=== PATIENT | female | born 1960 | race Hispanic/Latino ===

== ENCOUNTER → 2017-11-08 | Outpatient (CLI) | payer OTHER ==
[~2017-11-08] MED LIST: ALBU8.5H8 IH; AMOX-429 PO; ASPI-1114 PO; CALC1TAB3 PO; CETI10TA86 PO; DOXY100T2 PO; FENO145T37 PO; FLUT110HFA IH; FURO40TA5 PO; INSLAN SQ; INSU100C6 SQ; LISI2.5T2 PO; METO-409 PO; NITR0.4T SL; POTA20TA82 PO; PRAV10TA39 PO; PREG100C PO; RANO500T2 PO; TIOT4MIS3 IH; TOPI25CA2 PO; omeprazole PO
== END | disposition home or self-care (01) ==
LOC: SHCH 08:13
PROVIDERS: ATTEND Internal Medicine Cardiovascular Disease
DX: I34.0 Nonrheumatic mitral (valve) insufficiency (principal); I51.7 Cardiomegaly; I25.10 Atherosclerotic heart disease of native coronary artery without angina pectoris
CPT/HCPCS: 93306

== ENCOUNTER → 2017-11-19 | Outpatient (CLI) | payer OTHER | LOC: SHCH 10:29 | PROVIDERS: ATTEND Internal Medicine Cardiovascular Disease | DX: I73.9 Peripheral vascular disease, unspecified (principal) | CPT/HCPCS: 93925 ==

== ENCOUNTER 2018-07-21 19:42 | Emergency (ER) | payer OTHER ==
[2018-07-21] MEDS ORDERED: ACETAMINOPHEN-CODEINE 300/30MG TAB ONE (20:20)
== END 2018-07-21 22:42 | disposition home or self-care (01) ==
LOC: EDH 19:42
DX: S92.354A Nondisplaced fracture of fifth metatarsal bone, right foot, initial encounter for closed fracture (principal); S92.344A Nondisplaced fracture of fourth metatarsal bone, right foot, initial encounter for closed fracture; J44.9 Chronic obstructive pulmonary disease, unspecified; E11.9 Type 2 diabetes mellitus without complications; E78.5 Hyperlipidemia, unspecified; I10 Essential (primary) hypertension; Z90.710 Acquired absence of both cervix and uterus; Z87.891 Personal history of nicotine dependence; Z98.890 Other specified postprocedural states; W18.39XA Other fall on same level, initial encounter; Y93.89 Activity, other specified; Y92.89 Other specified places as the place of occurrence of the external cause; Y99.8 Other external cause status
CPT/HCPCS: 29515; 73590; 73610; 73630

== ENCOUNTER 2018-07-24 14:50 | Observation (INO) | payer OTHER ==
[~2018-07-24] VITALS: Ht 162.6 cm; Wt 97.7 kg
[2018-07-24 15:29] LABS: CREATININE 2.1 mg/dL (0.5-1.5)
[2018-07-24 15:34] LABS: ALBUMIN 2.5 g/dL (3.5-5.0); BILIRUBIN,TOTAL 0.4 mg/dL (0.2-1.0); TOTAL PROTEIN, SERUM 6.3 g/dL (6.0-8.3)
[2018-07-24] MEDS ORDERED: SODIUM CHLORIDE 0.9% 500ML 500 ML IV ONE (15:46)
[2018-07-24] MEDS ORDERED: ONDANSETRON HCL 4 MG/2 ML VIAL ONE (15:46)
[2018-07-24 15:50] LABS: CREATINE KINASE, TOTAL 116 U/L (21-232); MYOGLOBIN 140 ng/mL (10-92); TROPONIN I < 0.04 ng/mL (0.00-0.06)
[2018-07-24 16:52] LABS: BASOPHILS % (AUTO) 0.4 % (0.0-5.0); EOSINOPHILS % (AUTO) 2.1 % (0.0-8.0); HEMATOCRIT 29.8 % (36-48); LYMPHOCYTES % (AUTO) 14.3 % (21.0-51.0); MEAN CORPUSCULAR HEMOGLOBIN 28.8 pg (27.0-33.0); MEAN CORPUSCULAR HGB CONC 32.5 g/dL (32.0-36.0); MEAN CORPUSCULAR VOLUME 88.7 fL (79-99); MONOCYTES % (AUTO) 6.2 % (3.0-13.0); PLATELET COUNT (AUTO) 280 K/uL (130-400); RED BLOOD CELL COUNT(AUTO) 3.36 MIL/uL (4.00-5.50); RED CELL DISTRIBUTION WIDTH 14.5 % (11.0-15.5)
[2018-07-24 16:53] LABS: APPEARANCE,URINE Clear (CLEAR); BILIRUBIN,URINE Negative (NEGATIVE); COLOR,URINE Yellow (YELLOW); GLUCOSE, URINE (UA) Negative (NEGATIVE); KETONES,URINE Negative (NEGATIVE); LEUKOCYTE ESTERASE ,URINE Negative (NEGATIVE); NITRATE,URINE Negative (NEGATIVE); OCCULT BLOOD,URINE Negative (NEGATIVE); PROTEIN,URINE Negative (NEGATIVE); UROBILINOGEN,URINE 0.2 mg/dL (0.2-1.0)
[2018-07-24] MEDS ORDERED: SODIUM CHLORIDE 0.9% 1000ML 1,000 ML IV ONE (16:53)
[2018-07-24 17:03] LABS: AMPHET/METH SCREEN,URINE NEGATIVE (NEGATIVE); BARBITURATE SCREEN, URINE NEGATIVE (NEGATIVE); BENZODIAZEPINES SCREEN,URINE NEGATIVE (NEGATIVE); CANNABINOID SCREEN,URINE NEGATIVE (NEGATIVE); COCAINE SCREEN,URINE NEGATIVE (NEGATIVE); OPIATE SCREEN,URINE POSITIVE (NEGATIVE); PHENCYCLIDINE SCREEN,URINE NEGATIVE (NEGATIVE)
[2018-07-24] MEDS ORDERED: GLUCAGON 1MG KIT 1 MG ML IM PRN ×2 (18:15→23:15)
[2018-07-24] MEDS ORDERED: DEXTROSE 50%-WATER 50 ML DISP.SYRIN IV PRN ×2 (18:15→23:15)
[2018-07-24] MEDS ORDERED: 1/2 NORMAL SALINE 1,000 ML IV SCH (18:15)
[2018-07-24] MEDS ORDERED: NITROGLYCERIN 0.4 MG SL TAB SL PRN (19:15)
[2018-07-24] MEDS ORDERED: INSULIN R PO SS1 SQ SCH (21:00)
[2018-07-24] MEDS: RANOLAZINE 500 MG TAB.SR.12H PO SCH (21:00)
[2018-07-24] MEDS ORDERED: FENOFIBRATE NANOCRYSTALLIZED 145 MG TAB PO SCH (21:00)
[2018-07-24] MEDS ORDERED: POTASSIUM CHLORIDE 20 MEQ ERTAB PO SCH (21:00)
[2018-07-24] MEDS ORDERED: POTASSIUM CHLORIDE 20 MEQ ERTAB PO ONE (21:59)
[2018-07-24] MEDS ORDERED: 1/2 NORMAL SALINE 1,000 ML IV ONE (22:04)
[2018-07-24 22:35] VITALS: BP 114/62
[2018-07-24] MEDS ORDERED: SODIUM CHLORIDE 0.9% 1000ML 1,000 ML IV SCH (23:09)
[2018-07-24] MEDS ORDERED: LIDOCAINE HCL-MPF 1% 2ML VIAL IVP PRN (23:15)
[2018-07-24] MEDS ORDERED: LACTULOSE 20 GM/30 ML UDCUP PO PRN (23:15)
[2018-07-24] MEDS ORDERED: POTASSIUM CHLORIDE 20 MEQ ERTAB PO PRN (23:15)
[2018-07-24] MEDS ORDERED: ACETAMINOPHEN 325 MG TAB PO PRN ×2 (23:15)
[2018-07-24] MEDS ORDERED: POTASSIUM CHLORIDE 20MEQ/100ML 100 ML IV PRN (23:15)
[2018-07-24] MEDS ORDERED: ONDANSETRON HCL 4 MG/2 ML VIAL IV PRN (23:15)
[2018-07-24] MEDS ORDERED: POTASSIUM CHLORIDE 10% ELIXIR 20 MEQ/15 ML UDCUP PO PRN (23:15)
[2018-07-24] MEDS ORDERED: MAG HYDROX/AL HYDROX/SIMETH ES 30 ML SUSP UDCUP PO PRN (23:15)
[2018-07-25] MEDS ORDERED: VENTOLIN HFA IH SCH
[2018-07-25 03:36] VITALS: BP 111/49
[2018-07-25 08:00] VITALS: BP 112/56
[2018-07-25] MEDS ORDERED: FUROSEMIDE 40 MG TABLET PO SCH (09:00)
[2018-07-25] MEDS ORDERED: ENOXAPARIN SODIUM 40 MG/0.4 ML SYRINGE SQ SCH (09:00)
[2018-07-25] MEDS ORDERED: PANTOPRAZOLE SODIUM 40 MG TABLET.DR PO SCH (09:00)
[2018-07-25] MEDS ORDERED: ASPIRIN 81MG TAB.CHEW PO SCH (09:00)
[2018-07-25] MEDS ORDERED: OLODATEROL HCL IH SCH (09:00)
[2018-07-25] MEDS ORDERED: TIOTROPIUM BR IH SCH (09:00)
[2018-07-25] MEDS: RANOLAZINE 500 MG TAB.SR.12H PO SCH (09:04)
[2018-07-25 09:07] LABS: POTASSIUM 4.4 mmol/L (3.5-5.1)
[2018-07-25 12:00] VITALS: BP 126/68
[2018-07-25] MEDS ORDERED: FAMO40TA7 PO (12:39)
[2018-07-25] MEDS ORDERED: ROSU20TA30 PO (12:39)
[2018-07-25] MEDS ORDERED: TYL3 PO (12:39)
[2018-07-25] MEDS ORDERED: INSLAN SQ (12:39)
[2018-07-25] MEDS ORDERED: INSU100C14 SQ (12:39)
[2018-07-25] MEDS ORDERED: Pravastatin Sodium 10 MG PO SCH (21:00)
== END 2018-07-25 14:34 | disposition home or self-care (01) ==
LOC: EDH 14:50 → EDHIP 17:47 → 3CH 20:24
PROVIDERS: ADMIT Internal Medicine; ATTEND Internal Medicine
DX: E86.0 Dehydration (principal); R55 Syncope and collapse; K31.84 Gastroparesis; I13.0 Hypertensive heart and chronic kidney disease with heart failure and stage 1 through stage 4 chronic kidney disease, or unspecified chronic kidney disease; E11.65 Type 2 diabetes mellitus with hyperglycemia; E11.40 Type 2 diabetes mellitus with diabetic neuropathy, unspecified; E11.51 Type 2 diabetes mellitus with diabetic peripheral angiopathy without gangrene; E11.3499 Type 2 diabetes mellitus with severe nonproliferative diabetic retinopathy without macular edema, unspecified eye; E11.22 Type 2 diabetes mellitus with diabetic chronic kidney disease; E11.628 Type 2 diabetes mellitus with other skin complications; N18.3 Chronic kidney disease, stage 3 (moderate); I50.9 Heart failure, unspecified; E78.2 Mixed hyperlipidemia; I25.118 Atherosclerotic heart disease of native coronary artery with other forms of angina pectoris; I25.2 Old myocardial infarction; G25.81 Restless legs syndrome; G47.00 Insomnia, unspecified; D47.3 Essential (hemorrhagic) thrombocythemia; J44.9 Chronic obstructive pulmonary disease, unspecified; E66.01 Morbid (severe) obesity due to excess calories; I42.9 Cardiomyopathy, unspecified; E26.1 Secondary hyperaldosteronism; N25.81 Secondary hyperparathyroidism of renal origin; J98.4 Other disorders of lung; Z68.37 Body mass index [BMI] 37.0-37.9, adult; Z79.4 Long term (current) use of insulin; Z87.891 Personal history of nicotine dependence; Z89.411 Acquired absence of right great toe; Z90.49 Acquired absence of other specified parts of digestive tract; Z90.710 Acquired absence of both cervix and uterus; Z95.1 Presence of aortocoronary bypass graft; Z79.899 Other long term (current) drug therapy; Z82.0 Family history of epilepsy and other diseases of the nervous system; Z82.49 Family history of ischemic heart disease and other diseases of the circulatory system; Z82.3 Family history of stroke; Z82.5 Family history of asthma and other chronic lower respiratory diseases; Z83.3 Family history of diabetes mellitus
CPT/HCPCS: 36415 ×2; 70450; 71045; 80048; 80053; 80305; 81003; 82140; 82550 ×2; 82948 ×2; 83874; 84484 ×2; 85025; 93005; 96372; 99284; A6213; G0378 ×21; J1650; J2405; J7030; J7040

== ENCOUNTER → 2018-07-30 | Outpatient (CLI) | payer OTHER ==
[~2018-07-30] MED LIST changes: -AMOX-429 PO; -CALC1TAB3 PO; -CETI10TA86 PO; -DOXY100T2 PO; +FAMO40TA7 PO; -FENO145T37 PO; -FURO40TA5 PO; +INSU100C14 SQ; -INSU100C6 SQ; -LISI2.5T2 PO; -METO-409 PO; -POTA20TA82 PO; -PRAV10TA39 PO; -PREG100C PO; +ROSU20TA30 PO; -TOPI25CA2 PO; +TYL3 PO; -omeprazole PO
== END | disposition home or self-care (01) ==
LOC: RAH 13:06
PROVIDERS: ATTEND Internal Medicine
DX: I25.10 Atherosclerotic heart disease of native coronary artery without angina pectoris (principal); R42 Dizziness and giddiness; J44.9 Chronic obstructive pulmonary disease, unspecified; E11.40 Type 2 diabetes mellitus with diabetic neuropathy, unspecified
CPT/HCPCS: 93880

== ENCOUNTER → 2018-12-27 | Outpatient (CLI) | payer OTHER | END | disposition home or self-care (01) | LOC: RAH 15:10 | PROVIDERS: ATTEND Internal Medicine | DX: M25.552 Pain in left hip (principal) | CPT/HCPCS: 73502 ==

== ENCOUNTER 2021-07-24 22:36 | Inpatient (IN) | payer OTHER ==
[~2021-07-24] VITALS: Ht 157.5 cm; Wt 94.7 kg
[~2021-07-24 22:36] MED LIST changes: -ROSU20TA30 PO; +ROSU20TA31 PO
[2021-07-24] MEDS ORDERED: NITROGLYCERIN 1GM OINT 1 INCH/1GM TD ONE ×2 (22:47→23:00)
[2021-07-24 22:59] LABS: BASOPHILS % (AUTO) 0.3 % (0.0-5.0); EOSINOPHILS % (AUTO) 1.4 % (0.0-8.0); HEMATOCRIT 33.3 % (36-48); LYMPHOCYTES % (AUTO) 15.4 % (21.0-51.0); MEAN CORPUSCULAR HEMOGLOBIN 24.1 pg (27.0-33.0); MEAN CORPUSCULAR HGB CONC 29.4 g/dL (32.0-36.0); MEAN CORPUSCULAR VOLUME 81.8 fL (79-99); MONOCYTES % (AUTO) 7.3 % (3.0-13.0); NEUTROPHILS % (AUTO) 75.2 % (40.0-77.0); PLATELET COUNT (AUTO) 325 K/uL (130-400); RED BLOOD CELL COUNT(AUTO) 4.07 MIL/uL (4.00-5.50); RED CELL DISTRIBUTION WIDTH 23.4 % (11.0-15.5); WHITE BLOOD COUNT (AUTO) 9.3 K/uL (4.8-10.8)
[2021-07-24 23:29] LABS: CREATININE 1.7 mg/dL (0.5-1.5); POTASSIUM 3.1 mmol/L (3.5-5.1)
[2021-07-24 23:33] LABS: ALBUMIN 2.8 g/dL (3.5-5.0); BILIRUBIN,TOTAL 0.4 mg/dL (0.2-1.0); TOTAL PROTEIN, SERUM 6.9 g/dL (6.0-8.3)
[2021-07-25] MEDS ORDERED: POTASSIUM CHLORIDE 10MEQ/100ML 10 MEQ/100 ML ML IV STA (01:49)
[2021-07-25] MEDS ORDERED: MORPHINE 2 MG SYG IV PRN (02:00)
[2021-07-25] MEDS ORDERED: ATORVASTATIN 40 MG TABLET PO ONE (02:00)
[2021-07-25] MEDS ORDERED: FUROSEMIDE 20MG VIAL IV ONE (02:00)
[2021-07-25] MEDS ORDERED: INSULIN HUMULIN R 100 UNIT/ML 3ML SQ ONE (02:00)
[2021-07-25] MEDS: NITROGLYCERIN 1GM OINT 1 INCH/1GM TD SCH ×3 (02:00→18:04)
[2021-07-25] MEDS ORDERED: LACTATED RINGERS 1000ML 1,000 ML IV SCH (02:00)
[2021-07-25] MEDS ORDERED: ACETAMINOPHEN 325 MG TAB PO PRN ×2 (02:00)
[2021-07-25] MEDS ORDERED: HYDRALAZINE 20MG/ML VIAL IV PRN (02:00)
[2021-07-25] MEDS: ENOXAPARIN SODIUM 40 MG/0.4 ML SYRINGE SQ SCH ×2 (02:45→09:18)
[2021-07-25 03:00] VITALS: BP 122/63
[2021-07-25] MEDS ORDERED: POTASSIUM CHLORIDE 10% ELIXIR 20 MEQ/15 ML UDCUP PO ONE (03:00)
[2021-07-25] MEDS ORDERED: IPRATROPIUM/ALBUTEROL SULFATE 3 ML SOLUTION IH PRN (04:00)
[2021-07-25] MEDS ORDERED: METO5TAB7 PO (04:55)
[2021-07-25] MEDS ORDERED: PREG100C55 PO (04:55)
[2021-07-25] MEDS ORDERED: ROSU5TAB12 PO (04:55)
[2021-07-25] MEDS ORDERED: FURO40TA5 PO (04:55)
[2021-07-25] MEDS ORDERED: METO-391 PO (04:55)
[2021-07-25] MEDS ORDERED: CETI-89 PO (04:55)
[2021-07-25] MEDS ORDERED: INSLAN SQ ×2 (04:56)
[2021-07-25 05:03] LABS: INR 1.1 (0.85-1.15); PROTHROMBIN TIME 11.9 SEC (9.6-11.6)
[2021-07-25 05:04] LABS: PARTIAL THROMBOPLASTIN TIME 33.5 SEC (26.3-35.5)
[2021-07-25 05:12] LABS: MAGNESIUM 1.8 mg/dL (1.80-2.40); PHOSPHORUS 4.2 mg/dL (2.5-4.9)
[2021-07-25] MEDS: INSULIN HUMULIN R 100 UNIT/ML 3ML SQ SCH ×4 (06:37→20:38)
[2021-07-25] MEDS ORDERED: NITROGLYCERIN 0.4 MG SL TAB SL PRN (08:30)
[2021-07-25 08:41] VITALS: BP 109/46
[2021-07-25] MEDS ORDERED: OMEP20CA12 PO (08:52)
[2021-07-25] MEDS ORDERED: FAMOTIDINE 20MG VIAL IV SCH (09:00)
[2021-07-25] MEDS: FLUTICASONE PROPIONATE 110 MCG IH SCH ×2 (09:00→20:21)
[2021-07-25] MEDS ORDERED: DEXTROSE 50%-WATER 50 ML DISP.SYRIN IV PRN (09:00)
[2021-07-25] MEDS ORDERED: LIDOCAINE HCL-MPF 1% 2ML VIAL IV PRN ×2 (09:00)
[2021-07-25] MEDS ORDERED: FUROSEMIDE 20MG VIAL IV SCH (09:00)
[2021-07-25] MEDS ORDERED: POTASSIUM CHLORIDE 10% ELIXIR 20 MEQ/15 ML UDCUP PO PRN ×2 (09:00)
[2021-07-25] MEDS ORDERED: ASPIRIN 81MG CHEW TAB PO SCH (09:00)
[2021-07-25] MEDS: PANTOPRAZOLE 40 MG TAB DR PO SCH (09:00)
[2021-07-25] MEDS: TIOTROPIUM BR IH SCH (09:00)
[2021-07-25] MEDS: OLODATEROL HCL IH SCH (09:00)
[2021-07-25] MEDS ORDERED: POTASSIUM CHLORIDE 20MEQ/100ML 100 ML IV PRN (09:00)
[2021-07-25] MEDS ORDERED: KCL 20 MEQ ERTAB PO PRN (09:00)
[2021-07-25] MEDS ORDERED: POTASSIUM CHLORIDE 10MEQ/100ML 100 ML IV PRN (09:00)
[2021-07-25] MEDS ORDERED: GLUCAGON 1MG KIT 1 MG ML IM PRN (09:00)
[2021-07-25] MEDS: FUROSEMIDE 40 MG TABLET PO SCH (09:14)
[2021-07-25] MEDS: RANOLAZINE 500 MG TAB.SR.12H PO SCH ×2 (09:14→20:51)
[2021-07-25] MEDS: ASPIRIN 81 MG EC TAB PO SCH (09:14)
[2021-07-25] MEDS: CETIRIZINE HCL 5 MG TABLET PO SCH (09:14)
[2021-07-25 09:31] LABS: MEAN CORPUSCULAR HEMOGLOBIN 23.8 pg (27.0-33.0); MEAN CORPUSCULAR HGB CONC 28.8 g/dL (32.0-36.0); MEAN CORPUSCULAR VOLUME 82.9 fL (79-99); RED BLOOD CELL COUNT(AUTO) 3.86 MIL/uL (4.00-5.50); RED CELL DISTRIBUTION WIDTH 23.6 % (11.0-15.5); WHITE BLOOD COUNT (AUTO) 7.3 K/uL (4.8-10.8)
[2021-07-25 09:42] LABS: ALBUMIN 2.9 g/dL (3.5-5.0); BILIRUBIN,TOTAL 0.3 mg/dL (0.2-1.0); CREATININE 1.6 mg/dL (0.5-1.5); POTASSIUM 3.6 mmol/L (3.5-5.1); TOTAL PROTEIN, SERUM 6.9 g/dL (6.0-8.3)
[2021-07-25] MEDS: INSULIN GLARGINE 100 UNITS/ML 10 ML VIAL SQ SCH ×2 (09:46→20:39)
[2021-07-25] MEDS: KCL 20 MEQ ERTAB PO PRN ×2 (10:18→12:01)
[2021-07-25 12:02] VITALS: BP 104/50
[2021-07-25 16:45] VITALS: BP 105/56
[2021-07-25] MEDS ORDERED: CLOPIDOGREL 300MG TAB PO ONE (17:30)
[2021-07-25] MEDS ORDERED: HEPARIN 5,000 UNIT VIAL ONE (19:02)
[2021-07-25] MEDS: HEPARIN 25,000 UNITS/250ML D5W 250 ML IV SCH (19:10)
[2021-07-25 19:31] VITALS: BP 127/69
[2021-07-25] MEDS: ATORVASTATIN 40 MG TABLET PO SCH (20:50)
[2021-07-25] MEDS ORDERED: ATORVASTATIN 10 MG TABLET PO SCH (21:00)
[2021-07-25] MEDS ORDERED: METOPROLOL SUCCINATE 50 MG TAB.SR.24H PO SCH (21:00)
[2021-07-25 23:51] VITALS: BP 108/57
[2021-07-26] VITALS (11 sets, daily range): BP systolic 101–135; BP diastolic 45–68
[2021-07-26] MEDS: HEPARIN 25,000 UNITS/250ML D5W 250 ML IV SCH (01:41)
[2021-07-26] MEDS: NITROGLYCERIN 1GM OINT 1 INCH/1GM TD SCH ×2 (01:50→10:00)
[2021-07-26 06:43] LABS: BASOPHILS % (AUTO) 0.2 % (0.0-5.0); EOSINOPHILS % (AUTO) 2.5 % (0.0-8.0); HEMATOCRIT 34.7 % (36-48); LYMPHOCYTES % (AUTO) 9.4 % (21.0-51.0); MEAN CORPUSCULAR HEMOGLOBIN 24.3 pg (27.0-33.0); MEAN CORPUSCULAR HGB CONC 28.8 g/dL (32.0-36.0); MEAN CORPUSCULAR VOLUME 84.2 fL (79-99); MONOCYTES % (AUTO) 6.8 % (3.0-13.0); NEUTROPHILS % (AUTO) 80.7 % (40.0-77.0); PLATELET COUNT (AUTO) 310 K/uL (130-400); RED BLOOD CELL COUNT(AUTO) 4.12 MIL/uL (4.00-5.50); RED CELL DISTRIBUTION WIDTH 23.1 % (11.0-15.5); WHITE BLOOD COUNT (AUTO) 8.1 K/uL (4.8-10.8)
[2021-07-26 06:56] LABS: CREATININE 1.3 mg/dL (0.5-1.5); POTASSIUM 4.6 mmol/L (3.5-5.1)
[2021-07-26] MEDS ORDERED: IOHEXOL-350 50ML VIAL IV ONE (07:06)
[2021-07-26] MEDS ORDERED: IOHEXOL 350 MG/ML 100ML INFUS..BTL IV ONE ×2 (07:06→08:02)
[2021-07-26] MEDS ORDERED: NITROGLYCERIN 50MG VIAL IV ONE (07:06)
[2021-07-26] MEDS ORDERED: MIDAZOLAM HCL 1 MG/ML 2ML VIAL ONE (07:07)
[2021-07-26] MEDS ORDERED: LIDOCAINE HCL 400MG/20ML VIAL ONE (07:07)
[2021-07-26] MEDS ORDERED: FENTANYL CITRATE PF 50 MCG/1 ML 2ML VIAL ONE (07:07)
[2021-07-26] MEDS: PANTOPRAZOLE 40 MG TAB DR PO SCH (07:30)
[2021-07-26] MEDS: INSULIN HUMULIN R 100 UNIT/ML 3ML SQ SCH ×4 (07:30→20:29)
[2021-07-26] MEDS ORDERED: HEPARIN 10,000 UNIT/10ML (1,000 UNIT/ML) VIAL ONE (08:09)
[2021-07-26] MEDS ORDERED: 0.9%NACL 1000ML 1,000 ML IV SCH (09:00)
[2021-07-26] MEDS: INSULIN GLARGINE 100 UNITS/ML 10 ML VIAL SQ SCH ×2 (09:00→22:28)
[2021-07-26] MEDS: FLUTICASONE PROPIONATE 110 MCG IH SCH ×2 (09:00→21:00)
[2021-07-26] MEDS: CLOPIDOGREL 75MG TAB PO SCH (09:00)
[2021-07-26] MEDS: FUROSEMIDE 40 MG TABLET PO SCH (09:00)
[2021-07-26] MEDS: ASPIRIN 81 MG EC TAB PO SCH (09:00)
[2021-07-26] MEDS: RANOLAZINE 500 MG TAB.SR.12H PO SCH ×2 (09:00→21:44)
[2021-07-26] MEDS: CETIRIZINE HCL 5 MG TABLET PO SCH (09:00)
[2021-07-26] MEDS: OLODATEROL HCL IH SCH (09:00)
[2021-07-26] MEDS: TIOTROPIUM BR IH SCH (09:00)
[2021-07-26] MEDS: ENOXAPARIN SODIUM 40 MG/0.4 ML SYRINGE SQ SCH (09:00)
[2021-07-26] MEDS ORDERED: ROSU10TA28 PO (12:47)
[2021-07-26] MEDS ORDERED: CLOP75TA14 PO (12:47)
[2021-07-26] MEDS ORDERED: CARV3.1262 PO (12:58)
[2021-07-26] MEDS ORDERED: FUROSEMIDE 20MG VIAL IV SCH (13:30)
[2021-07-26] MEDS: ATORVASTATIN 40 MG TABLET PO SCH (21:44)
[2021-07-26] MEDS: CARVEDILOL 3.125 MG TABLET PO SCH (21:46)
[2021-07-26] MEDS: ONDANSETRON 4MG INJ IV PRN (21:50)
[2021-07-26] MEDS ORDERED: HYDROCODONE/ACETAMINOPHEN 5/325 MG TAB PO ONE (23:00)
[2021-07-27] VITALS: BP 116/61
[2021-07-27 04:00] VITALS: BP 96/48
[2021-07-27 05:38] LABS: HEMATOCRIT 32.8 % (36-48); MEAN CORPUSCULAR HEMOGLOBIN 23.9 pg (27.0-33.0); MEAN CORPUSCULAR HGB CONC 28.7 g/dL (32.0-36.0); MEAN CORPUSCULAR VOLUME 83.2 fL (79-99); RED BLOOD CELL COUNT(AUTO) 3.94 MIL/uL (4.00-5.50); RED CELL DISTRIBUTION WIDTH 23.1 % (11.0-15.5); WHITE BLOOD COUNT (AUTO) 6.8 K/uL (4.8-10.8)
[2021-07-27] MEDS: INSULIN HUMULIN R 100 UNIT/ML 3ML SQ SCH (05:43)
[2021-07-27] MEDS: PANTOPRAZOLE 40 MG TAB DR PO SCH (05:43)
[2021-07-27 05:56] LABS: % IRON SATURATION 11.7 % (22-44)
[2021-07-27 06:11] LABS: CREATININE 1.4 mg/dL (0.5-1.5); POTASSIUM 4.4 mmol/L (3.5-5.1); THYROID STIMULATING HORMONE 1.67 uIU/mL (0.36-3.74)
[2021-07-27 07:51] VITALS: BP 110/59
[2021-07-27] MEDS ORDERED: NITR0.4T SL (08:59)
[2021-07-27] MEDS ORDERED: FERS325 PO (08:59)
[2021-07-27] MEDS: TIOTROPIUM BR IH SCH (09:00)
[2021-07-27] MEDS: OLODATEROL HCL IH SCH (09:00)
[2021-07-27] MEDS ORDERED: FERROUS SULFATE 325 MG TABLET.DR PO SCH (09:00)
[2021-07-27] MEDS: FLUTICASONE PROPIONATE 110 MCG IH SCH (09:00)
[2021-07-27] MEDS ORDERED: ONDANSETRON 4MG INJ IVP PRN (10:00)
[2021-07-27] MEDS: CETIRIZINE HCL 5 MG TABLET PO SCH (10:13)
[2021-07-27] MEDS: RANOLAZINE 500 MG TAB.SR.12H PO SCH (10:13)
[2021-07-27] MEDS: FUROSEMIDE 40 MG TABLET PO SCH (10:14)
[2021-07-27] MEDS: CLOPIDOGREL 75MG TAB PO SCH (10:14)
[2021-07-27] MEDS: ASPIRIN 81 MG EC TAB PO SCH (10:14)
[2021-07-27] MEDS: ENOXAPARIN SODIUM 40 MG/0.4 ML SYRINGE SQ SCH (10:14)
[2021-07-27] MEDS: INSULIN GLARGINE 100 UNITS/ML 10 ML VIAL SQ SCH (10:15)
[2021-07-27 10:17] VITALS: BP 132/68
[2021-07-27] MEDS: CARVEDILOL 3.125 MG TABLET PO SCH (10:17)
[2021-07-27] MEDS: ONDANSETRON 4MG INJ IV PRN (10:21)
== END 2021-07-27 14:00 | disposition home or self-care (01) | DRG 280 ==
LOC: EDH 22:36 → EDHIP 07-25 01:39 → 4CH 07-25 02:24
PROVIDERS: ADMIT Hospitalist; ATTEND Hospitalist
PROC: 4A023N7 Measurement of Cardiac Sampling and Pressure, Left Heart, Percutaneous Approach (ICD-10-PCS; principal; 2021-07-26)
PROC: B2151ZZ Fluoroscopy of Left Heart using Low Osmolar Contrast (ICD-10-PCS; 2021-07-26)
PROC: B2181ZZ Fluoroscopy of Left Internal Mammary Bypass Graft using Low Osmolar Contrast (ICD-10-PCS; 2021-07-26)
PROC: B2171ZZ Fluoroscopy of Right Internal Mammary Bypass Graft using Low Osmolar Contrast (ICD-10-PCS; 2021-07-26)
PROC: B41G1ZZ Fluoroscopy of Left Lower Extremity Arteries using Low Osmolar Contrast (ICD-10-PCS; 2021-07-26)
DX: I21.4 Non-ST elevation (NSTEMI) myocardial infarction (principal); I50.41 Acute combined systolic (congestive) and diastolic (congestive) heart failure; I13.0 Hypertensive heart and chronic kidney disease with heart failure and stage 1 through stage 4 chronic kidney disease, or unspecified chronic kidney disease; Z68.41 Body mass index [BMI] 40.0-44.9, adult; I70.0 Atherosclerosis of aorta; J44.9 Chronic obstructive pulmonary disease, unspecified; N18.30 Chronic kidney disease, stage 3 unspecified; E11.22 Type 2 diabetes mellitus with diabetic chronic kidney disease; E11.311 Type 2 diabetes mellitus with unspecified diabetic retinopathy with macular edema; E11.40 Type 2 diabetes mellitus with diabetic neuropathy, unspecified; E11.65 Type 2 diabetes mellitus with hyperglycemia; E66.01 Morbid (severe) obesity due to excess calories; E11.51 Type 2 diabetes mellitus with diabetic peripheral angiopathy without gangrene; I25.5 Ischemic cardiomyopathy; E78.2 Mixed hyperlipidemia; M81.0 Age-related osteoporosis without current pathological fracture; I25.119 Atherosclerotic heart disease of native coronary artery with unspecified angina pectoris; D63.8 Anemia in other chronic diseases classified elsewhere; E87.6 Hypokalemia; I34.0 Nonrheumatic mitral (valve) insufficiency; Z89.411 Acquired absence of right great toe; Z90.711 Acquired absence of uterus with remaining cervical stump; Z90.49 Acquired absence of other specified parts of digestive tract; I25.2 Old myocardial infarction; Z79.4 Long term (current) use of insulin; Z79.02 Long term (current) use of antithrombotics/antiplatelets; Z79.82 Long term (current) use of aspirin; Z79.899 Other long term (current) drug therapy; Z87.891 Personal history of nicotine dependence; Z95.1 Presence of aortocoronary bypass graft; Z82.5 Family history of asthma and other chronic lower respiratory diseases; Z83.3 Family history of diabetes mellitus; Z82.3 Family history of stroke; Z82.0 Family history of epilepsy and other diseases of the nervous system; Z82.49 Family history of ischemic heart disease and other diseases of the circulatory system
CPT/HCPCS: 36415; 71045; 80048; 80053; 80061; 82010; 82330; 82607; 82746; 82948; 83540; 83550; 83605; 83615; 83735; 83880; 83883; 84100; 84145; 84443; 84484; 85025; 85027; 85378; 85610; 85730; 86334; 87040; 93005; 93306; 93356; 93455; 99156; 99157; 99291; C1769; C1894; G0378; J1644; J1650; J1815; J1940; J2250; J2405; J3010; J3490; Q9967

== ENCOUNTER 2022-07-28 22:54 | Emergency (ER) | payer OTHER ==
[~2022-07-28] VITALS: Ht 162.6 cm; Wt 104.3 kg
[~2022-07-28 22:54] MED LIST changes: +AZIT500T PO; +CARV3.1262 PO; +CETI10TA57 PO; +CLOP-31 PO; -FAMO40TA7 PO; +FURO40TA5 PO; +OMEP20CA12 PO; +PRED20TA3 PO; +PREG200C28 PO; +ROSU10TA28 PO; -ROSU20TA31 PO; +SACU1TAB PO; -TYL3 PO; +vit d3 PO
[2022-07-28 23:24] LABS: BASOPHILS % (AUTO) 0.2 % (0.0-5.0); EOSINOPHILS % (AUTO) 0.7 % (0.0-8.0); LYMPHOCYTES % (AUTO) 8.3 % (21.0-51.0); MEAN CORPUSCULAR HEMOGLOBIN 29.2 pg (27.0-33.0); MEAN CORPUSCULAR VOLUME 97.2 fL (79-99); NEUTROPHILS % (AUTO) 84.4 % (40.0-77.0); PLATELET COUNT (AUTO) 251 K/uL (130-400); RED BLOOD CELL COUNT(AUTO) 3.19 MIL/uL (4.00-5.50); RED CELL DISTRIBUTION WIDTH 15.4 % (11.0-15.5); WHITE BLOOD COUNT (AUTO) 12.1 K/uL (4.8-10.8)
[2022-07-28 23:33] LABS: CREATININE 3.1 mg/dL (0.5-1.5); POTASSIUM 3.8 mmol/L (3.5-5.1)
[2022-07-28 23:38] LABS: ALBUMIN 3.2 g/dL (3.5-5.0); TOTAL PROTEIN, SERUM 6.4 g/dL (6.0-8.3)
[2022-07-29 00:12] VITALS: BP 107/47
[2022-07-29] MEDS ORDERED: IBUP-1493 PO (00:14)
== END 2022-07-29 00:32 | disposition home or self-care (01) ==
LOC: EDH 22:54
DX: M54.6 Pain in thoracic spine (principal); M25.561 Pain in right knee; Z20.822 Contact with and (suspected) exposure to COVID-19; J44.9 Chronic obstructive pulmonary disease, unspecified; E11.9 Type 2 diabetes mellitus without complications; E78.00 Pure hypercholesterolemia, unspecified; I10 Essential (primary) hypertension; Z79.4 Long term (current) use of insulin; Z79.899 Other long term (current) drug therapy; Z79.82 Long term (current) use of aspirin; Z98.890 Other specified postprocedural states; W22.8XXA Striking against or struck by other objects, initial encounter; Y93.89 Activity, other specified; Y92.89 Other specified places as the place of occurrence of the external cause; Y99.8 Other external cause status
CPT/HCPCS: 99285; 29505; 70450; 87635; 84484; 80053; 85025; 87804 ×2; 36415; 73562; 93005; C9803

== ENCOUNTER 2023-04-15 02:14 | Inpatient (IN) | payer OTHER ==
[~2023-04-15] VITALS: Ht 162.6 cm; Wt 107.5 kg
[~2023-04-15 02:14] MED LIST changes: +IBUP-1493 PO
[2023-04-15] MEDS ORDERED: ZOSYN 3.375GM+NS 50ML 50 ML IVPB ONE ×2 (16:11→23:47)
[2023-04-15] MEDS ORDERED: ACETAMINOPHEN 325 MG TAB ONE (16:11)
[2023-04-15] MEDS ORDERED: IPRATROPIUM/ALBUTEROL SULFATE 3 ML SOLUTION IH ONE (17:07)
[2023-04-15 17:10] VITALS: PULSE 100
[2023-04-15] MEDS: ZOSYN 3.375GM +NS 50ML IVPB SCH (23:50)
[2023-04-16] VITALS (7 sets, daily range): BP systolic 107–137; BP diastolic 42–66; PULSE 70–96; RESP 20–22; O2SAT 97–98
[2023-04-16] MEDS ORDERED: IPRATROPIUM/ALBUTEROL SULFATE 3 ML SOLUTION IH ONE (02:13)
[2023-04-16] MEDS ORDERED: IPRATROPIUM/ALBUTEROL SULFATE 3 ML SOLUTION IH PRN (03:30)
[2023-04-16] MEDS ORDERED: PANT40TA54 PO (04:10)
[2023-04-16] MEDS ORDERED: CLOP75TA32 PO (04:10)
[2023-04-16] MEDS ORDERED: SACU1TAB PO (04:10)
[2023-04-16] MEDS ORDERED: FERR-72 PO (04:10)
[2023-04-16] MEDS ORDERED: CARV3.12 PO (04:10)
[2023-04-16] MEDS ORDERED: RANO10005 PO (04:10)
[2023-04-16] MEDS ORDERED: PREG100C55 PO (04:10)
[2023-04-16] MEDS ORDERED: CETI10TA57 PO (04:10)
[2023-04-16] MEDS ORDERED: CHOL500045 PO (04:10)
[2023-04-16] MEDS ORDERED: AEC81 PO (04:10)
[2023-04-16] MEDS ORDERED: ROSU10TA28 PO (04:10)
[2023-04-16] MEDS ORDERED: FURO40TA5 PO (04:10)
[2023-04-16] MEDS ORDERED: ACET250T28 PO (04:10)
[2023-04-16 07:01] LABS: BASOPHILS # (AUTO) 0.02 K/uL (0.00-0.20); BASOPHILS % (AUTO) 0.2 % (0.0-5.0); EOSINOPHILS # (AUTO) 0.05 K/uL (0.00-0.70); EOSINOPHILS % (AUTO) 0.5 % (0.0-8.0); HEMATOCRIT 30.2 % (36-48); IMMATURE GRANULOCYTE ABSOLUTE 0.03 K/uL (0-1); LYMPHOCYTES # (AUTO) 0.8 K/uL (1.0-4.8); LYMPHOCYTES % (AUTO) 8.5 % (21.0-51.0); MEAN CORPUSCULAR HEMOGLOBIN 32.5 pg (27.0-33.0); MEAN CORPUSCULAR HGB CONC 31.1 g/dL (32.0-36.0); MEAN CORPUSCULAR VOLUME 104.5 fL (79-99); MONOCYTES # (AUTO) 0.6 K/uL (0.1-1.0); MONOCYTES % (AUTO) 6.1 % (3.0-13.0); NEUTROPHILS # (AUTO) 8.2 K/uL (1.8-7.7); NEUTROPHILS % (AUTO) 84.4 % (40.0-77.0); PLATELET COUNT (AUTO) 166 K/uL (130-400); RED BLOOD CELL COUNT(AUTO) 2.89 MIL/uL (4.00-5.50); RED CELL DISTRIBUTION WIDTH 13.2 % (11.0-15.5); WHITE BLOOD COUNT (AUTO) 9.7 K/uL (4.8-10.8)
[2023-04-16 07:14] LABS: CREATININE 1.2 mg/dL (0.5-1.5); POTASSIUM 4.1 mmol/L (3.5-5.1)
[2023-04-16] MEDS ORDERED: 0.9%NACL 50ML IV SCH (08:00)
[2023-04-16] MEDS ORDERED: NITROGLYCERIN 0.4 MG SL TAB SL PRN (08:30)
[2023-04-16] MEDS ORDERED: POTASSIUM CHLORIDE 20MEQ/100ML 100 ML IV PRN (09:00)
[2023-04-16] MEDS ORDERED: NON-FORMULARY MEDICATION 1 EACH (Omeprazole 20 MG) PO SCH (09:00)
[2023-04-16] MEDS ORDERED: GLUCAGON 1MG KIT 1 MG ML IM PRN (09:00)
[2023-04-16] MEDS ORDERED: DEXTROSE 50%-WATER 50 ML DISP.SYRIN IV PRN (09:00)
[2023-04-16] MEDS ORDERED: INSULIN GLARGINE 100 UNITS/ML 10 ML VIAL SQ SCH ×2 (09:00→21:00)
[2023-04-16] MEDS: AcetaZOLAMIDE 250 MG TAB PO SCH (09:00)
[2023-04-16] MEDS ORDERED: NON-FORMULARY MEDICATION 1 EACH (Cetirizine HCl 10 MG) PO SCH (09:00)
[2023-04-16] MEDS ORDERED: NON-FORMULARY MEDICATION 1 EACH (Ferrous Sulfate 325 MG) PO SCH (09:00)
[2023-04-16] MEDS ORDERED: NON-FORMULARY MEDICATION 1 EACH (Ranolazine (Ranolazine ER) 1,000 MG) PO SCH (09:00)
[2023-04-16] MEDS: PANTOPRAZOLE 40 MG TAB DR PO SCH (09:10)
[2023-04-16] MEDS: RANOLAZINE 500 MG TAB.SR.12H PO SCH ×2 (09:10→20:26)
[2023-04-16] MEDS: INSULIN HUMULIN R 100 UNIT/ML 3ML SQ SCH ×4 (09:10→19:49)
[2023-04-16] MEDS: SACUBITRIL/VALSARTAN 1 EACH TABLET PO SCH (09:11)
[2023-04-16] MEDS: ENOXAPARIN SODIUM 30 MG/0.3 ML SQ SCH (09:14)
[2023-04-16] MEDS: FERROUS SULFATE 325 MG TABLET.DR PO SCH (09:15)
[2023-04-16] MEDS: CETIRIZINE HCL 5 MG TABLET PO SCH (09:15)
[2023-04-16] MEDS: ASPIRIN 81 MG EC TAB PO SCH (09:15)
[2023-04-16] MEDS: CLOPIDOGREL 75MG TAB PO SCH (09:16)
[2023-04-16] MEDS: FUROSEMIDE 40 MG TABLET PO SCH (09:16)
[2023-04-16] MEDS: CARVEDILOL 3.125 MG TABLET PO SCH ×2 (09:17→20:26)
[2023-04-16] MEDS: ONDANSETRON 4MG INJ IVP PRN (09:47)
[2023-04-16] MEDS: ZOSYN 3.375GM +NS 50ML IVPB SCH ×2 (12:33→20:24)
[2023-04-16] MEDS: ACETAMINOPHEN 325 MG TAB PO PRN (17:08)
[2023-04-16] MEDS: PREGABALIN 100 MG CAPSULE PO SCH (20:25)
[2023-04-17] VITALS (9 sets, daily range): BP systolic 112–134; BP diastolic 47–61; PULSE 74–84; RESP 18–21; O2SAT 96–99
[2023-04-17] MEDS: ZOSYN 3.375GM +NS 50ML IVPB SCH ×3 (03:59→20:10)
[2023-04-17 05:12] LABS: HEMATOCRIT 28.9 % (36-48); MEAN CORPUSCULAR HEMOGLOBIN 32.1 pg (27.0-33.0); MEAN CORPUSCULAR HGB CONC 30.1 g/dL (32.0-36.0); MEAN CORPUSCULAR VOLUME 106.6 fL (79-99); PLATELET COUNT (AUTO) 165 K/uL (130-400); RED BLOOD CELL COUNT(AUTO) 2.71 MIL/uL (4.00-5.50); RED CELL DISTRIBUTION WIDTH 13.3 % (11.0-15.5); WHITE BLOOD COUNT (AUTO) 7.5 K/uL (4.8-10.8)
[2023-04-17 05:23] LABS: CREATININE 1.3 mg/dL (0.5-1.5); POTASSIUM 3.9 mmol/L (3.5-5.1)
[2023-04-17] MEDS: INSULIN HUMULIN R 100 UNIT/ML 3ML SQ SCH ×4 (06:46→20:05)
[2023-04-17 07:21] LABS: CREATININE 1.3 mg/dL (0.5-1.5); POTASSIUM 3.9 mmol/L (3.5-5.1)
[2023-04-17 07:24] LABS: SARS-CoV-2, RNA, NAAT NEGATIVE SARS CoV-2 (NEGATIVE)
[2023-04-17 07:31] LABS: HEMATOCRIT 31.8 % (36-48); RED BLOOD CELL COUNT(AUTO) 3.01 MIL/uL (4.00-5.50); WHITE BLOOD COUNT (AUTO) 10.2 K/uL (4.8-10.8)
[2023-04-17 07:32] LABS: BASOPHILS % (AUTO) 0.2 % (0.0-5.0); EOSINOPHILS % (AUTO) 0.8 % (0.0-8.0); LYMPHOCYTES % (AUTO) 9.5 % (21.0-51.0); MEAN CORPUSCULAR HEMOGLOBIN 32.2 pg (27.0-33.0); MEAN CORPUSCULAR HGB CONC 30.5 g/dL (32.0-36.0); MEAN CORPUSCULAR VOLUME 105.6 fL (79-99); MONOCYTES % (AUTO) 6.7 % (3.0-13.0); NEUTROPHILS % (AUTO) 82.4 % (40.0-77.0); PLATELET COUNT (AUTO) 201 K/uL (130-400); RED CELL DISTRIBUTION WIDTH 13.4 % (11.0-15.5)
[2023-04-17 07:33] LABS: IMMATURE GRANULOCYTE ABSOLUTE 0.04 K/uL (0-1)
[2023-04-17] MEDS: FUROSEMIDE 40 MG TABLET PO SCH (08:30)
[2023-04-17] MEDS: CARVEDILOL 3.125 MG TABLET PO SCH ×2 (08:30→20:11)
[2023-04-17] MEDS: RANOLAZINE 500 MG TAB.SR.12H PO SCH ×2 (08:30→21:00)
[2023-04-17] MEDS: FERROUS SULFATE 325 MG TABLET.DR PO SCH (08:30)
[2023-04-17] MEDS: CETIRIZINE HCL 5 MG TABLET PO SCH (08:31)
[2023-04-17] MEDS: SACUBITRIL/VALSARTAN 1 EACH TABLET PO SCH (08:31)
[2023-04-17] MEDS: AcetaZOLAMIDE 250 MG TAB PO SCH (08:31)
[2023-04-17] MEDS: CLOPIDOGREL 75MG TAB PO SCH (08:31)
[2023-04-17] MEDS: ENOXAPARIN SODIUM 30 MG/0.3 ML SQ SCH (08:32)
[2023-04-17] MEDS: PANTOPRAZOLE 40 MG TAB DR PO SCH (08:32)
[2023-04-17] MEDS: ASPIRIN 81 MG EC TAB PO SCH (08:32)
[2023-04-17] MEDS: TIOTROPIUM BR IH SCH (08:36)
[2023-04-17] MEDS: OLODATEROL HCL IH SCH (08:36)
[2023-04-17] MEDS ORDERED: INSULIN GLARGINE 100 UNITS/ML 10 ML VIAL SQ SCH (09:00)
[2023-04-17] MEDS: MUPIROCIN OINTMENT 22 GM TUBE TP SCH (19:30)
[2023-04-17] MEDS: PREGABALIN 100 MG CAPSULE PO SCH (20:10)
[2023-04-18] VITALS (11 sets, daily range): BP systolic 105–132; BP diastolic 47–72; PULSE 80–112; RESP 18–24; O2SAT 95–98
[2023-04-18] MEDS ORDERED: BACITRACIN 1 EACH PACKET TP ONE (00:54)
[2023-04-18] MEDS ORDERED: METOPROLOL SUCCINATE 25 MG TAB.SR.24H PO ONE (02:00)
[2023-04-18] MEDS ORDERED: METOPROLOL SUCCINATE 25 MG TAB.SR.24H PO PRN (02:00)
[2023-04-18] MEDS: PHARMACY COMMUNICATION MISC SCH ×2 (02:48→05:52)
[2023-04-18] MEDS: ZOSYN 3.375GM +NS 50ML IVPB SCH ×3 (03:49→20:02)
[2023-04-18] MEDS: INSULIN HUMULIN R 100 UNIT/ML 3ML SQ SCH ×4 (05:51→19:53)
[2023-04-18] MEDS ORDERED: METOPROLOL TARTRATE 25 MG TAB PO PRN (08:00)
[2023-04-18] MEDS: OLODATEROL HCL IH SCH (09:00)
[2023-04-18] MEDS: TIOTROPIUM BR IH SCH (09:00)
[2023-04-18] MEDS: MUPIROCIN OINTMENT 22 GM TUBE TP SCH (09:00)
[2023-04-18] MEDS ORDERED: ENOXAPARIN SODIUM 30 MG/0.3 ML SQ SCH (09:00)
[2023-04-18 09:44] LABS: HEMATOCRIT 28.1 % (36-48); MEAN CORPUSCULAR HEMOGLOBIN 32.5 pg (27.0-33.0); MEAN CORPUSCULAR HGB CONC 29.5 g/dL (32.0-36.0); MEAN CORPUSCULAR VOLUME 110.2 fL (79-99); RED BLOOD CELL COUNT(AUTO) 2.55 MIL/uL (4.00-5.50); RED CELL DISTRIBUTION WIDTH 13.2 % (11.0-15.5); WHITE BLOOD COUNT (AUTO) 6.7 K/uL (4.8-10.8)
[2023-04-18 09:55] LABS: CREATININE 1.5 mg/dL (0.5-1.5); POTASSIUM 4.1 mmol/L (3.5-5.1)
[2023-04-18] MEDS: CARVEDILOL 3.125 MG TABLET PO SCH ×2 (10:40→20:02)
[2023-04-18] MEDS: PANTOPRAZOLE 40 MG TAB DR PO SCH (10:40)
[2023-04-18] MEDS: FUROSEMIDE 40 MG TABLET PO SCH (10:40)
[2023-04-18] MEDS: CETIRIZINE HCL 5 MG TABLET PO SCH (10:40)
[2023-04-18] MEDS: ASPIRIN 81 MG EC TAB PO SCH (10:40)
[2023-04-18] MEDS: AcetaZOLAMIDE 250 MG TAB PO SCH (10:40)
[2023-04-18] MEDS: SACUBITRIL/VALSARTAN 1 EACH TABLET PO SCH (10:41)
[2023-04-18] MEDS: FERROUS SULFATE 325 MG TABLET.DR PO SCH (10:41)
[2023-04-18] MEDS: CLOPIDOGREL 75MG TAB PO SCH (10:41)
[2023-04-18] MEDS: RANOLAZINE 500 MG TAB.SR.12H PO SCH ×2 (10:41→20:02)
[2023-04-18] MEDS ORDERED: FUROSEMIDE 40MG VIAL IV ONE (15:30)
[2023-04-18] MEDS ORDERED: ALBUTEROL 0.042% 1.25MG/3ML IH PRN (15:30)
[2023-04-18] MEDS ORDERED: IOHEXOL-350 50ML VIAL IV ONE (17:48)
[2023-04-18] MEDS ORDERED: IOHEXOL 350 MG/ML 100ML INFUS..BTL IV ONE (17:48)
[2023-04-18] MEDS ORDERED: IPRATROPIUM 0.5 MG/2.5 ML INH IH ONE (20:16)
[2023-04-18] MEDS: IPRATROPIUM 0.5 MG/2.5 ML INH IH SCH (20:26)
[2023-04-19] VITALS (16 sets, daily range): BP systolic 100–132; BP diastolic 47–64; PULSE 85–142; RESP 16–35; O2SAT 92–99
[2023-04-19] MEDS: HEPARIN 25,000 UNITS/250ML D5W 250 ML IV SCH (00:30)
[2023-04-19] MEDS: ZOSYN 3.375GM +NS 50ML IVPB SCH ×3 (03:28→20:16)
[2023-04-19 05:14] LABS: HEMATOCRIT 29.7 % (36-48); MEAN CORPUSCULAR HEMOGLOBIN 31.9 pg (27.0-33.0); RED BLOOD CELL COUNT(AUTO) 2.7 MIL/uL (4.00-5.50); WHITE BLOOD COUNT (AUTO) 7.6 K/uL (4.8-10.8)
[2023-04-19 05:22] LABS: CREATININE 1.4 mg/dL (0.5-1.5); POTASSIUM 3.9 mmol/L (3.5-5.1)
[2023-04-19] MEDS: INSULIN HUMULIN R 100 UNIT/ML 3ML SQ SCH ×4 (05:57→20:17)
[2023-04-19] MEDS: IPRATROPIUM 0.5 MG/2.5 ML INH IH SCH ×3 (06:55→22:51)
[2023-04-19] MEDS: INSULIN GLARGINE 100 UNITS/ML 10 ML VIAL SQ SCH (08:21)
[2023-04-19] MEDS: ASPIRIN 81 MG EC TAB PO SCH (08:22)
[2023-04-19] MEDS: CETIRIZINE HCL 5 MG TABLET PO SCH (08:22)
[2023-04-19] MEDS: AcetaZOLAMIDE 250 MG TAB PO SCH (08:23)
[2023-04-19] MEDS: RANOLAZINE 500 MG TAB.SR.12H PO SCH ×2 (08:23→20:18)
[2023-04-19] MEDS: CLOPIDOGREL 75MG TAB PO SCH (08:24)
[2023-04-19] MEDS: FERROUS SULFATE 325 MG TABLET.DR PO SCH (08:24)
[2023-04-19] MEDS: SACUBITRIL/VALSARTAN 1 EACH TABLET PO SCH (08:24)
[2023-04-19] MEDS: CARVEDILOL 3.125 MG TABLET PO SCH ×2 (08:25→20:18)
[2023-04-19] MEDS: TIOTROPIUM BR IH SCH (08:25)
[2023-04-19] MEDS: PANTOPRAZOLE 40 MG TAB DR PO SCH (08:25)
[2023-04-19] MEDS: OLODATEROL HCL IH SCH (08:25)
[2023-04-19] MEDS: FUROSEMIDE 40 MG TABLET PO SCH (08:25)
[2023-04-19] MEDS ORDERED: LACTULOSE 20 GM/30 ML UDCUP PO PRN (09:00)
[2023-04-19] MEDS: MUPIROCIN OINTMENT 22 GM TUBE TP SCH (09:45)
[2023-04-19 14:23] LABS: ABG BASE EXCESS 3.6 mmol/L (-2.0-3.0); ABG HCO3 34.4 mmol/L (21.0-28.0); ABG OXYGEN SATURATION 90.8 % (95.0-99.0); ABG PCO2 85 mmHg (32-45); ABG PH 7.227 (7.35-7.450); PO2, ARTERIAL BG 72.6 mmHg (83.0-108.0); VENT MODE, BG NC 2L (ROOM AIR)
[2023-04-19 14:39] LABS: % IRON SATURATION 26.4 % (22-44)
[2023-04-19 16:44] LABS: INR 0.98 (0.85-1.15); PROTHROMBIN TIME 11.4 SEC (9.6-11.6)
[2023-04-19 16:45] LABS: PARTIAL THROMBOPLASTIN TIME 70.8 SEC (26.3-35.5)
[2023-04-19 17:53] LABS: ABG HCO3 34.6 mmol/L (21.0-28.0); ABG OXYGEN SATURATION 96.1 % (95.0-99.0); ABG PCO2 75 mmHg (32-45); ABG PH 7.282 (7.35-7.450); PO2, ARTERIAL BG 95.3 mmHg (83.0-108.0)
[2023-04-19] MEDS ORDERED: FUROSEMIDE 40MG VIAL IV ONE (18:30)
[2023-04-19 20:00] LABS: ABG BASE EXCESS 7.6 mmol/L (-2.0-3.0); ABG HCO3 36.3 mmol/L (21.0-28.0); ABG OXYGEN SATURATION 89.9 % (95.0-99.0); ABG PCO2 70 mmHg (32-45); ABG PH 7.334 (7.35-7.450); PO2, ARTERIAL BG 63.1 mmHg (83.0-108.0)
[2023-04-19 20:15] LABS: CREATININE 1.6 mg/dL (0.5-1.5); POTASSIUM 3.8 mmol/L (3.5-5.1)
[2023-04-19 20:18] LABS: INR 0.98 (0.85-1.15); PROTHROMBIN TIME 11.4 SEC (9.6-11.6)
[2023-04-19 20:19] LABS: PARTIAL THROMBOPLASTIN TIME 36.7 SEC (26.3-35.5)
[2023-04-19 20:20] LABS: ALBUMIN 2.6 g/dL (3.5-5.0); BILIRUBIN,TOTAL 0.6 mg/dL (0.2-1.0); TOTAL PROTEIN, SERUM 6.3 g/dL (6.0-8.3)
[2023-04-19 20:24] LABS: THYROID STIMULATING HORMONE 0.46 uIU/mL (0.36-3.74)
[2023-04-19] MEDS: ATORVASTATIN 20 MG TABLET PO SCH (21:58)
[2023-04-19] MEDS ORDERED: METOPROLOL TARTRATE 1 MG/ML 5ML VIAL IV ONE ×2 (22:00)
[2023-04-19] MEDS ORDERED: 0.9% NACL 250ML 250 ML IV SCH (23:00)
[2023-04-20] VITALS (18 sets, daily range): BP systolic 93–138; BP diastolic 45–68; PULSE 80–133; RESP 18–35; O2SAT 94–98
[2023-04-20] MEDS: HEPARIN 25,000 UNITS/250ML D5W 250 ML IV SCH (00:55)
[2023-04-20] MEDS: FUROSEMIDE 40MG VIAL IV SCH ×3 (02:56→23:00)
[2023-04-20] MEDS: ZOSYN 3.375GM +NS 50ML IVPB SCH ×3 (02:56→20:09)
[2023-04-20 05:35] LABS: HEMATOCRIT 25.6 % (36-48); MEAN CORPUSCULAR HEMOGLOBIN 31.9 pg (27.0-33.0); MEAN CORPUSCULAR HGB CONC 30.9 g/dL (32.0-36.0); MEAN CORPUSCULAR VOLUME 103.2 fL (79-99); RED BLOOD CELL COUNT(AUTO) 2.48 MIL/uL (4.00-5.50); WHITE BLOOD COUNT (AUTO) 6.6 K/uL (4.8-10.8)
[2023-04-20 06:07] LABS: ALBUMIN 2.4 g/dL (3.5-5.0); BILIRUBIN,DIRECT 0.2 mg/dL (0.0-0.3); BILIRUBIN,TOTAL 0.7 mg/dL (0.2-1.0); CREATININE 1.8 mg/dL (0.5-1.5); MAGNESIUM 1.9 mg/dL (1.80-2.40); POTASSIUM 3.2 mmol/L (3.5-5.1); TOTAL PROTEIN, SERUM 5.8 g/dL (6.0-8.3); URIC ACID 5.8 mg/dL (2.6-7.2)
[2023-04-20] MEDS: IPRATROPIUM 0.5 MG/2.5 ML INH IH SCH ×3 (06:35→18:57)
[2023-04-20] MEDS: INSULIN HUMULIN R 100 UNIT/ML 3ML SQ SCH ×3 (07:30→15:50)
[2023-04-20 08:06] LABS: ABG BASE EXCESS 6.6 mmol/L (-2.0-3.0); ABG HCO3 32.2 mmol/L (21.0-28.0); ABG OXYGEN SATURATION 93.5 % (95.0-99.0); ABG PCO2 49 mmHg (32-45); ABG PH 7.432 (7.35-7.450); PO2, ARTERIAL BG 66.5 mmHg (83.0-108.0); VENT MODE, BG NC 2L (ROOM AIR)
[2023-04-20] MEDS: TIOTROPIUM BR IH SCH (09:00)
[2023-04-20] MEDS: OLODATEROL HCL IH SCH (09:00)
[2023-04-20] MEDS: INSULIN GLARGINE 100 UNITS/ML 10 ML VIAL SQ SCH (09:00)
[2023-04-20] MEDS: FERROUS SULFATE 325 MG TABLET.DR PO SCH (09:03)
[2023-04-20] MEDS: CETIRIZINE HCL 5 MG TABLET PO SCH (09:03)
[2023-04-20] MEDS: RANOLAZINE 500 MG TAB.SR.12H PO SCH ×2 (09:03→20:12)
[2023-04-20] MEDS: ASPIRIN 81 MG EC TAB PO SCH (09:03)
[2023-04-20] MEDS: SACUBITRIL/VALSARTAN 1 EACH TABLET PO SCH (09:03)
[2023-04-20] MEDS: AcetaZOLAMIDE 250 MG TAB PO SCH (09:04)
[2023-04-20] MEDS: CARVEDILOL 3.125 MG TABLET PO SCH ×2 (09:04→20:12)
[2023-04-20] MEDS: Vitamin B Complex/Vit C/Folic Acid PO SCH (09:04)
[2023-04-20] MEDS: PANTOPRAZOLE 40 MG TAB DR PO SCH (09:04)
[2023-04-20] MEDS: CLOPIDOGREL 75MG TAB PO SCH (09:05)
[2023-04-20] MEDS: MUPIROCIN OINTMENT 22 GM TUBE TP SCH (09:06)
[2023-04-20] MEDS: LINEZOLID 600 MG/ISO-OSM 300 ML IV SCH (15:14)
[2023-04-20] MEDS: LOPERAMIDE HCL 2 MG CAP PO PRN ×3 (16:09→23:08)
[2023-04-20] MEDS: KCL 20 MEQ ERTAB PO PRN ×2 (20:13→23:01)
[2023-04-20] MEDS: ATORVASTATIN 20 MG TABLET PO SCH (21:23)
[2023-04-20 22:43] LABS: APPEARANCE,URINE CLEAR (CLEAR); BILIRUBIN,URINE NEGATIVE (NEGATIVE); COLOR,URINE YELLOW (YELLOW); GLUCOSE, URINE (UA) NEGATIVE (NEGATIVE); KETONES,URINE 20 mg/dL (NEGATIVE); LEUKOCYTE ESTERASE ,URINE 75 Leu/uL (NEGATIVE); NITRATE,URINE NEGATIVE (NEGATIVE); OCCULT BLOOD,URINE NEGATIVE (NEGATIVE); PH,URINE 5.5 (5.0-8.0); PROTEIN,URINE 30 mg/dL (NEGATIVE); UROBILINOGEN,URINE 0.2 mg/dL (0.2-1.0)
[2023-04-20 22:51] LABS: ADD UA MICROSCOPIC YES
[2023-04-20 22:53] LABS: MUCUS,URINE RARE LPF (None Seen); SQUAMOUS EPITHELIAL CELL,UR RARE /HPF (0-2)
[2023-04-21] VITALS (17 sets, daily range): BP systolic 121–158; BP diastolic 61–67; PULSE 74–87; RESP 18–28; O2SAT 96–99
[2023-04-21] MEDS: LINEZOLID 600 MG/ISO-OSM 300 ML IV SCH ×2 (00:24→12:38)
[2023-04-21] MEDS: INSULIN HUMULIN R 100 UNIT/ML 3ML SQ SCH ×5 (00:29→21:00)
[2023-04-21] MEDS: ZOSYN 3.375GM +NS 50ML IVPB SCH ×3 (02:55→19:07)
[2023-04-21] MEDS: KCL 20 MEQ ERTAB PO PRN (02:57)
[2023-04-21 04:44] LABS: RED BLOOD CELL COUNT(AUTO) 2.58 MIL/uL (4.00-5.50); WHITE BLOOD COUNT (AUTO) 7.9 K/uL (4.8-10.8)
[2023-04-21 04:45] LABS: BASOPHILS # (AUTO) 0.02 K/uL (0.00-0.20); BASOPHILS % (AUTO) 0.3 % (0.0-5.0); EOSINOPHILS # (AUTO) 0.02 K/uL (0.00-0.70); EOSINOPHILS % (AUTO) 0.3 % (0.0-8.0); HEMATOCRIT 26.6 % (36-48); IMMATURE GRANULOCYTE ABSOLUTE 0.07 K/uL (0-1); LYMPHOCYTES # (AUTO) 0.8 K/uL (1.0-4.8); LYMPHOCYTES % (AUTO) 10.4 % (21.0-51.0); MEAN CORPUSCULAR HEMOGLOBIN 31.4 pg (27.0-33.0); MEAN CORPUSCULAR HGB CONC 30.5 g/dL (32.0-36.0); MEAN CORPUSCULAR VOLUME 103.1 fL (79-99); MONOCYTES # (AUTO) 0.5 K/uL (0.1-1.0); MONOCYTES % (AUTO) 6.5 % (3.0-13.0); NEUTROPHILS # (AUTO) 6.4 K/uL (1.8-7.7); NEUTROPHILS % (AUTO) 81.6 % (40.0-77.0); PLATELET COUNT (AUTO) 223 K/uL (130-400); RED CELL DISTRIBUTION WIDTH 13.3 % (11.0-15.5)
[2023-04-21 05:09] LABS: CREATININE 1.8 mg/dL (0.5-1.5); POTASSIUM 3.2 mmol/L (3.5-5.1)
[2023-04-21] MEDS: POTASSIUM CHLORIDE 10% ELIXIR 20 MEQ/15 ML UDCUP PO PRN ×3 (06:41→17:34)
[2023-04-21] MEDS: IPRATROPIUM 0.5 MG/2.5 ML INH IH SCH ×3 (07:33→21:37)
[2023-04-21] MEDS: CETIRIZINE HCL 5 MG TABLET PO SCH (08:50)
[2023-04-21] MEDS: AcetaZOLAMIDE 250 MG TAB PO SCH (08:50)
[2023-04-21] MEDS: ASPIRIN 81 MG EC TAB PO SCH (08:50)
[2023-04-21] MEDS: Vitamin B Complex/Vit C/Folic Acid PO SCH (08:50)
[2023-04-21] MEDS: RANOLAZINE 500 MG TAB.SR.12H PO SCH ×2 (08:50→21:01)
[2023-04-21] MEDS: CARVEDILOL 3.125 MG TABLET PO SCH ×2 (08:50→21:00)
[2023-04-21] MEDS: FERROUS SULFATE 325 MG TABLET.DR PO SCH (08:50)
[2023-04-21] MEDS: LOPERAMIDE HCL 2 MG CAP PO PRN (08:50)
[2023-04-21] MEDS: PANTOPRAZOLE 40 MG TAB DR PO SCH (08:50)
[2023-04-21] MEDS: CLOPIDOGREL 75MG TAB PO SCH (08:51)
[2023-04-21] MEDS: SACUBITRIL/VALSARTAN 1 EACH TABLET PO SCH (08:51)
[2023-04-21] MEDS: MUPIROCIN OINTMENT 22 GM TUBE TP SCH (08:52)
[2023-04-21] MEDS ORDERED: GUAIFENESIN/DEXTROMETHORPHAN 1 EACH TAB.SR.12H PO ONE (08:59)
[2023-04-21] MEDS: OLODATEROL HCL IH SCH (09:00)
[2023-04-21] MEDS: TIOTROPIUM BR IH SCH (09:00)
[2023-04-21] MEDS: GUAIFENESIN/DEXTROMETHORPHAN 1 EACH TAB.SR.12H PO PRN (09:17)
[2023-04-21] MEDS: INSULIN GLARGINE 100 UNITS/ML 10 ML VIAL SQ SCH (09:18)
[2023-04-21] MEDS: FUROSEMIDE 40MG VIAL IV SCH (11:49)
[2023-04-21] MEDS ORDERED: MAGNESIUM 2GM PREMIX 50ML 50 ML IV PRN (16:30)
[2023-04-21] MEDS ORDERED: KCL 20 MEQ ERTAB PO PRN (16:30)
[2023-04-21] MEDS ORDERED: POTASSIUM CHLORIDE 10MEQ/100ML 100 ML IV PRN ×2 (16:30)
[2023-04-21] MEDS: ATORVASTATIN 20 MG TABLET PO SCH (20:59)
[2023-04-22] VITALS (17 sets, daily range): BP systolic 91–139; BP diastolic 48–67; PULSE 62–78; RESP 18–25; O2SAT 96–98
[2023-04-22] MEDS: LINEZOLID 600 MG/ISO-OSM 300 ML IV SCH ×3 (00:13→23:18)
[2023-04-22] MEDS: LOPERAMIDE HCL 2 MG CAP PO PRN ×4 (01:38→17:37)
[2023-04-22 03:43] LABS: BASOPHILS # (AUTO) 0.02 K/uL (0.00-0.20); BASOPHILS % (AUTO) 0.3 % (0.0-5.0); EOSINOPHILS # (AUTO) 0.14 K/uL (0.00-0.70); EOSINOPHILS % (AUTO) 1.8 % (0.0-8.0); HEMATOCRIT 26.4 % (36-48); IMMATURE GRANULOCYTE ABSOLUTE 0.07 K/uL (0-1); LYMPHOCYTES # (AUTO) 0.8 K/uL (1.0-4.8); LYMPHOCYTES % (AUTO) 10.7 % (21.0-51.0); MEAN CORPUSCULAR HEMOGLOBIN 32.4 pg (27.0-33.0); MEAN CORPUSCULAR HGB CONC 31.8 g/dL (32.0-36.0); MEAN CORPUSCULAR VOLUME 101.9 fL (79-99); MONOCYTES # (AUTO) 0.6 K/uL (0.1-1.0); MONOCYTES % (AUTO) 7.3 % (3.0-13.0); NEUTROPHILS # (AUTO) 6.2 K/uL (1.8-7.7); PLATELET COUNT (AUTO) 223 K/uL (130-400); RED BLOOD CELL COUNT(AUTO) 2.59 MIL/uL (4.00-5.50); RED CELL DISTRIBUTION WIDTH 13.2 % (11.0-15.5); WHITE BLOOD COUNT (AUTO) 7.8 K/uL (4.8-10.8)
[2023-04-22 03:51] LABS: CREATININE 1.6 mg/dL (0.5-1.5); POTASSIUM 3.7 mmol/L (3.5-5.1)
[2023-04-22] MEDS: ZOSYN 3.375GM +NS 50ML IVPB SCH ×3 (04:29→18:34)
[2023-04-22] MEDS: INSULIN HUMULIN R 100 UNIT/ML 3ML SQ SCH ×4 (05:38→20:16)
[2023-04-22] MEDS: IPRATROPIUM 0.5 MG/2.5 ML INH IH SCH ×3 (06:38→23:15)
[2023-04-22] MEDS: ASPIRIN 81 MG EC TAB PO SCH (08:51)
[2023-04-22] MEDS: Vitamin B Complex/Vit C/Folic Acid PO SCH (08:51)
[2023-04-22] MEDS: AcetaZOLAMIDE 250 MG TAB PO SCH (08:51)
[2023-04-22] MEDS: RANOLAZINE 500 MG TAB.SR.12H PO SCH ×2 (08:51→19:25)
[2023-04-22] MEDS: CLOPIDOGREL 75MG TAB PO SCH (08:52)
[2023-04-22] MEDS: PANTOPRAZOLE 40 MG TAB DR PO SCH (08:52)
[2023-04-22] MEDS: CARVEDILOL 3.125 MG TABLET PO SCH ×2 (08:52→19:25)
[2023-04-22] MEDS: GUAIFENESIN/DEXTROMETHORPHAN 1 EACH TAB.SR.12H PO PRN (08:52)
[2023-04-22] MEDS: FERROUS SULFATE 325 MG TABLET.DR PO SCH (08:52)
[2023-04-22] MEDS: CETIRIZINE HCL 5 MG TABLET PO SCH (08:52)
[2023-04-22] MEDS: POTASSIUM CHLORIDE 10% ELIXIR 20 MEQ/15 ML UDCUP PO PRN ×2 (08:53→10:58)
[2023-04-22] MEDS: FUROSEMIDE 40MG VIAL IV SCH (08:56)
[2023-04-22] MEDS: OLODATEROL HCL IH SCH (08:57)
[2023-04-22] MEDS: TIOTROPIUM BR IH SCH (08:57)
[2023-04-22] MEDS: MUPIROCIN OINTMENT 22 GM TUBE TP SCH (09:04)
[2023-04-22] MEDS: SACUBITRIL/VALSARTAN 1 EACH TABLET PO SCH (09:04)
[2023-04-22] MEDS: INSULIN GLARGINE 100 UNITS/ML 10 ML VIAL SQ SCH (09:10)
[2023-04-22 15:53] LABS: ABG BASE EXCESS 6.5 mmol/L (-2.0-3.0); ABG HCO3 31.9 mmol/L (21.0-28.0); ABG OXYGEN SATURATION 96.1 % (95.0-99.0); ABG PCO2 48 mmHg (32-45); ABG PH 7.439 (7.35-7.450); DEVICE COMMENT LR; PO2, ARTERIAL BG 79.9 mmHg (83.0-108.0); VENT MODE, BG BIPAP 16.5 (ROOM AIR)
[2023-04-22] MEDS: LACTOBACILLUS RHAMNOSUS GG 1 EACH CAP.SPRINK PO SCH (17:20)
[2023-04-22] MEDS: ATORVASTATIN 20 MG TABLET PO SCH (19:25)
[2023-04-22] MEDS: METRONIDAZOLE 500 MG TABLET PO SCH (19:25)
[2023-04-23] VITALS (16 sets, daily range): BP systolic 61–128; BP diastolic 38–59; PULSE 72–122; RESP 18–22; O2SAT 97–99
[2023-04-23] MEDS: ZOSYN 3.375GM +NS 50ML IVPB SCH ×3 (03:05→18:45)
[2023-04-23 03:45] LABS: HEMATOCRIT 26.4 % (36-48); MEAN CORPUSCULAR HEMOGLOBIN 33.1 pg (27.0-33.0); MEAN CORPUSCULAR HGB CONC 32.6 g/dL (32.0-36.0); MEAN CORPUSCULAR VOLUME 101.5 fL (79-99); RED BLOOD CELL COUNT(AUTO) 2.6 MIL/uL (4.00-5.50); RED CELL DISTRIBUTION WIDTH 13.4 % (11.0-15.5); WHITE BLOOD COUNT (AUTO) 7.5 K/uL (4.8-10.8)
[2023-04-23 04:01] LABS: CREATININE 1.4 mg/dL (0.5-1.5); POTASSIUM 3.4 mmol/L (3.5-5.1)
[2023-04-23] MEDS: POTASSIUM CHLORIDE 10% ELIXIR 20 MEQ/15 ML UDCUP PO PRN ×2 (05:05→08:12)
[2023-04-23] MEDS: INSULIN HUMULIN R 100 UNIT/ML 3ML SQ SCH ×4 (05:39→20:58)
[2023-04-23] MEDS: IPRATROPIUM 0.5 MG/2.5 ML INH IH SCH ×3 (06:42→23:36)
[2023-04-23] MEDS: Vitamin B Complex/Vit C/Folic Acid PO SCH (08:12)
[2023-04-23] MEDS: FUROSEMIDE 40MG VIAL IV SCH (08:12)
[2023-04-23] MEDS: CETIRIZINE HCL 5 MG TABLET PO SCH (08:12)
[2023-04-23] MEDS: FERROUS SULFATE 325 MG TABLET.DR PO SCH (08:12)
[2023-04-23] MEDS: METRONIDAZOLE 500 MG TABLET PO SCH ×2 (08:12→20:58)
[2023-04-23] MEDS: CLOPIDOGREL 75MG TAB PO SCH (08:13)
[2023-04-23] MEDS: ASPIRIN 81 MG EC TAB PO SCH (08:15)
[2023-04-23] MEDS: PANTOPRAZOLE 40 MG TAB DR PO SCH (08:18)
[2023-04-23] MEDS: AcetaZOLAMIDE 250 MG TAB PO SCH (08:18)
[2023-04-23] MEDS: SACUBITRIL/VALSARTAN 1 EACH TABLET PO SCH (08:18)
[2023-04-23] MEDS: RANOLAZINE 500 MG TAB.SR.12H PO SCH ×2 (08:18→20:58)
[2023-04-23] MEDS: TIOTROPIUM BR IH SCH (08:19)
[2023-04-23] MEDS: OLODATEROL HCL IH SCH (08:19)
[2023-04-23] MEDS: CARVEDILOL 3.125 MG TABLET PO SCH (08:19)
[2023-04-23] MEDS: MUPIROCIN OINTMENT 22 GM TUBE TP SCH (08:20)
[2023-04-23] MEDS: INSULIN GLARGINE 100 UNITS/ML 10 ML VIAL SQ SCH (08:26)
[2023-04-23] MEDS: LACTOBACILLUS RHAMNOSUS GG 1 EACH CAP.SPRINK PO SCH ×2 (12:44→17:18)
[2023-04-23] MEDS: LINEZOLID 600 MG/ISO-OSM 300 ML IV SCH (12:44)
[2023-04-23] MEDS: METOPROLOL SUCCINATE 25 MG TAB.SR.24H PO SCH (20:58)
[2023-04-23] MEDS: ATORVASTATIN 20 MG TABLET PO SCH (20:58)
[2023-04-23] MEDS ORDERED: METOPROLOL SUCCINATE 25 MG TAB.SR.24H PO ONE (22:30)
[2023-04-23] MEDS: ACETAMINOPHEN 325 MG TAB PO PRN (22:56)
[2023-04-23] MEDS ORDERED: METOPROLOL TARTRATE 1 MG/ML 5ML VIAL IV ONE (23:00)
[2023-04-23] MEDS ORDERED: AMIODARONE 900MG VIAL IV ONE (23:32)
[2023-04-23] MEDS ORDERED: AMIODARONE 150MG VIAL ONE (23:32)
[2023-04-24] VITALS (49 sets, daily range): BP systolic 104–144; BP diastolic 33–57; PULSE 53–84; RESP 12–26; O2SAT 94–99
[2023-04-24] MEDS ORDERED: 0.9% NACL 250ML 250 ML IV SCH
[2023-04-24] MEDS ORDERED: AMIODARONE 900MG VIAL 150 MG in DEXTROSE 5%-WATER 100 ML IV SCH ×2
[2023-04-24] MEDS: ACETAMINOPHEN 325 MG TAB PO PRN ×2 (00:14→08:07)
[2023-04-24] MEDS ORDERED: ALBUMIN (HUMAN) 25% 100 ML IV PRN (00:30)
[2023-04-24] MEDS ORDERED: PHENYLEPHRINE HCL 10 MG in 0.9% NACL 250ML 250 ML IV PRN (00:30)
[2023-04-24] MEDS ORDERED: AMIODARONE 900MG VIAL 360 MG in DEXTROSE 5%-WATER 200 ML IV SCH ×3 (01:00)
[2023-04-24] MEDS ORDERED: ALBUMIN (HUMAN) 25% 100 ML IV ONE (01:17)
[2023-04-24] MEDS: LINEZOLID 600 MG/ISO-OSM 300 ML IV SCH ×2 (01:28→13:31)
[2023-04-24 02:17] LABS: INFLUENZA TYPE A Negative For Type A (NEGATIVE); INFLUENZA TYPE B Negative For Type B (NEGATIVE)
[2023-04-24 04:11] LABS: BASOPHILS # (AUTO) 0.01 K/uL (0.00-0.20); BASOPHILS % (AUTO) 0.1 % (0.0-5.0); EOSINOPHILS # (AUTO) 0.07 K/uL (0.00-0.70); EOSINOPHILS % (AUTO) 0.9 % (0.0-8.0); HEMATOCRIT 24.8 % (36-48); IMMATURE GRANULOCYTE ABSOLUTE 0.07 K/uL (0-1); LYMPHOCYTES # (AUTO) 0.7 K/uL (1.0-4.8); LYMPHOCYTES % (AUTO) 8.2 % (21.0-51.0); MEAN CORPUSCULAR HEMOGLOBIN 32.5 pg (27.0-33.0); MEAN CORPUSCULAR HGB CONC 31.9 g/dL (32.0-36.0); MEAN CORPUSCULAR VOLUME 102.1 fL (79-99); MONOCYTES # (AUTO) 0.5 K/uL (0.1-1.0); MONOCYTES % (AUTO) 6.2 % (3.0-13.0); NEUTROPHILS # (AUTO) 6.7 K/uL (1.8-7.7); NEUTROPHILS % (AUTO) 83.7 % (40.0-77.0); PLATELET COUNT (AUTO) 207 K/uL (130-400); RED BLOOD CELL COUNT(AUTO) 2.43 MIL/uL (4.00-5.50); RED CELL DISTRIBUTION WIDTH 13.5 % (11.0-15.5)
[2023-04-24 04:29] LABS: ALBUMIN 2.4 g/dL (3.5-5.0); BILIRUBIN,TOTAL 0.6 mg/dL (0.2-1.0); CREATININE 1.8 mg/dL (0.5-1.5); PHOSPHORUS 2.8 mg/dL (2.5-4.9); POTASSIUM 3.5 mmol/L (3.5-5.1); TOTAL PROTEIN, SERUM 5.5 g/dL (6.0-8.3)
[2023-04-24] MEDS: ZOSYN 3.375GM +NS 50ML IVPB SCH ×3 (05:22→20:03)
[2023-04-24] MEDS: AMIODARONE 900MG VIAL 540 MG in DEXTROSE 5%-WATER 300 ML IV SCH ×2 (06:17→18:37)
[2023-04-24] MEDS: IPRATROPIUM 0.5 MG/2.5 ML INH IH SCH ×3 (06:19→22:23)
[2023-04-24] MEDS: INSULIN HUMULIN R 100 UNIT/ML 3ML SQ SCH ×4 (06:21→19:45)
[2023-04-24] MEDS: LOPERAMIDE HCL 2 MG CAP PO PRN (07:14)
[2023-04-24] MEDS: ASPIRIN 81 MG EC TAB PO SCH (08:53)
[2023-04-24] MEDS: AcetaZOLAMIDE 250 MG TAB PO SCH (08:53)
[2023-04-24] MEDS: OLODATEROL HCL IH SCH (08:53)
[2023-04-24] MEDS: TIOTROPIUM BR IH SCH (08:53)
[2023-04-24] MEDS: SACUBITRIL/VALSARTAN 1 EACH TABLET PO SCH (08:53)
[2023-04-24] MEDS: FERROUS SULFATE 325 MG TABLET.DR PO SCH (08:54)
[2023-04-24] MEDS: METRONIDAZOLE 500 MG TABLET PO SCH ×2 (08:54→20:03)
[2023-04-24] MEDS: FUROSEMIDE 40 MG TABLET PO SCH (08:55)
[2023-04-24] MEDS: Vitamin B Complex/Vit C/Folic Acid PO SCH (08:56)
[2023-04-24] MEDS: RANOLAZINE 500 MG TAB.SR.12H PO SCH ×2 (09:00→20:04)
[2023-04-24] MEDS: PANTOPRAZOLE 40 MG TAB DR PO SCH (09:00)
[2023-04-24] MEDS: CLOPIDOGREL 75MG TAB PO SCH (09:00)
[2023-04-24] MEDS: METOPROLOL SUCCINATE 25 MG TAB.SR.24H PO SCH (09:00)
[2023-04-24] MEDS: CETIRIZINE HCL 5 MG TABLET PO SCH (09:01)
[2023-04-24] MEDS: MUPIROCIN OINTMENT 22 GM TUBE TP SCH (09:05)
[2023-04-24] MEDS: INSULIN GLARGINE 100 UNITS/ML 10 ML VIAL SQ SCH (09:07)
[2023-04-24] MEDS ORDERED: ACETYLCYSTEINE 20% 200MG/ML 4ML VIAL PO SCH ×2 (09:30→12:00)
[2023-04-24] MEDS: LACTOBACILLUS RHAMNOSUS GG 1 EACH CAP.SPRINK PO SCH ×2 (11:39→17:59)
[2023-04-24] MEDS: ACETYLCYSTEINE 20% 200MG/ML 4ML VIAL PO SCH ×2 (12:00→18:00)
[2023-04-24] MEDS: ACETYLCYSTEINE 600 MG CAPSULE PO SCH ×2 (20:00→20:11)
[2023-04-24] MEDS: ATORVASTATIN 20 MG TABLET PO SCH (20:03)
[2023-04-25] VITALS (16 sets, daily range): BP systolic 139–158; BP diastolic 58–75; PULSE 59–76; RESP 18–25; O2SAT 97–100
[2023-04-25] MEDS: LINEZOLID 600 MG/ISO-OSM 300 ML IV SCH ×2 (00:48→12:50)
[2023-04-25] MEDS: ACETYLCYSTEINE 600 MG CAPSULE PO SCH ×4 (00:48→17:19)
[2023-04-25] MEDS: ZOSYN 3.375GM +NS 50ML IVPB SCH ×3 (03:48→19:43)
[2023-04-25 04:07] LABS: HEMATOCRIT 27.9 % (36-48); MEAN CORPUSCULAR HEMOGLOBIN 31.7 pg (27.0-33.0); MEAN CORPUSCULAR HGB CONC 30.5 g/dL (32.0-36.0); MEAN CORPUSCULAR VOLUME 104.1 fL (79-99); PLATELET COUNT (AUTO) 216 K/uL (130-400); RED BLOOD CELL COUNT(AUTO) 2.68 MIL/uL (4.00-5.50); RED CELL DISTRIBUTION WIDTH 13.7 % (11.0-15.5); WHITE BLOOD COUNT (AUTO) 10.2 K/uL (4.8-10.8)
[2023-04-25 04:31] LABS: EOSINOPHILS % (MANUAL) 1 % (1-6); LYMPHOCYTES % (MANUAL) 6 % (22-44); MONOCYTES % (MANUAL) 2 % (2-9); SEGMENTED NEUTROPHILS % 91 % (40-70); TOTAL CELLS COUNTED 100
[2023-04-25 04:32] LABS: MAN.DIFF COMMENT-IMPRESSION MANUAL DIFFERENTIAL; PLATELET MORPHOLOGY COMMENT ADEQUATE; WBC MORPHOLOGY HYPERSEGMENT NEUT 1+
[2023-04-25 04:35] LABS: ALBUMIN 2.5 g/dL (3.5-5.0); BILIRUBIN,TOTAL 0.6 mg/dL (0.2-1.0); CREATININE 1.3 mg/dL (0.5-1.5); MAGNESIUM 2.1 mg/dL (1.80-2.40); PHOSPHORUS 2.8 mg/dL (2.5-4.9); POTASSIUM 3.1 mmol/L (3.5-5.1)
[2023-04-25] MEDS: KCL 20 MEQ ERTAB PO PRN (06:11)
[2023-04-25] MEDS: INSULIN HUMULIN R 100 UNIT/ML 3ML SQ SCH ×5 (06:20→21:19)
[2023-04-25] MEDS: IPRATROPIUM 0.5 MG/2.5 ML INH IH SCH ×3 (06:33→18:22)
[2023-04-25] MEDS ORDERED: 0.9% NACL 500ML IV.SOLN 500 ML IV SCH (08:30)
[2023-04-25] MEDS: OLODATEROL HCL IH SCH (09:00)
[2023-04-25] MEDS: TIOTROPIUM BR IH SCH (09:00)
[2023-04-25] MEDS: INSULIN GLARGINE 100 UNITS/ML 10 ML VIAL SQ SCH (10:20)
[2023-04-25] MEDS: RANOLAZINE 500 MG TAB.SR.12H PO SCH ×2 (10:21→21:28)
[2023-04-25] MEDS: FERROUS SULFATE 325 MG TABLET.DR PO SCH (10:21)
[2023-04-25] MEDS: Vitamin B Complex/Vit C/Folic Acid PO SCH (10:21)
[2023-04-25] MEDS: CETIRIZINE HCL 5 MG TABLET PO SCH (10:21)
[2023-04-25] MEDS: METRONIDAZOLE 500 MG TABLET PO SCH ×2 (10:21→21:29)
[2023-04-25] MEDS: CLOPIDOGREL 75MG TAB PO SCH (10:21)
[2023-04-25] MEDS: SACUBITRIL/VALSARTAN 1 EACH TABLET PO SCH (10:21)
[2023-04-25] MEDS: PANTOPRAZOLE 40 MG TAB DR PO SCH (10:22)
[2023-04-25] MEDS: AcetaZOLAMIDE 250 MG TAB PO SCH (10:22)
[2023-04-25] MEDS: METOPROLOL SUCCINATE 25 MG TAB.SR.24H PO SCH (10:22)
[2023-04-25] MEDS: ASPIRIN 81 MG EC TAB PO SCH (10:22)
[2023-04-25] MEDS: FUROSEMIDE 40 MG TABLET PO SCH (10:22)
[2023-04-25] MEDS: MUPIROCIN OINTMENT 22 GM TUBE TP SCH (10:24)
[2023-04-25] MEDS: LACTOBACILLUS RHAMNOSUS GG 1 EACH CAP.SPRINK PO SCH ×2 (12:50→17:19)
[2023-04-25] MEDS: AMIODARONE 900MG VIAL 540 MG in DEXTROSE 5%-WATER 300 ML IV SCH (13:14)
[2023-04-25] MEDS: ATORVASTATIN 20 MG TABLET PO SCH (21:28)
[2023-04-25] MEDS: GUAIFENESIN/DEXTROMETHORPHAN 1 EACH TAB.SR.12H PO PRN (21:29)
[2023-04-26] VITALS (12 sets, daily range): BP systolic 97–148; BP diastolic 50–67; PULSE 66–134; RESP 17–24; O2SAT 98–100
[2023-04-26] MEDS: LINEZOLID 600 MG/ISO-OSM 300 ML IV SCH ×2 (00:50→12:27)
[2023-04-26] MEDS: ACETYLCYSTEINE 600 MG CAPSULE PO SCH ×4 (00:50→17:32)
[2023-04-26] MEDS: ZOSYN 3.375GM +NS 50ML IVPB SCH ×3 (03:39→19:30)
[2023-04-26] MEDS: AMIODARONE 900MG VIAL 540 MG in DEXTROSE 5%-WATER 300 ML IV SCH ×2 (04:38→19:17)
[2023-04-26 04:55] LABS: BASOPHILS # (AUTO) 0.01 K/uL (0.00-0.20); BASOPHILS % (AUTO) 0.1 % (0.0-5.0); EOSINOPHILS % (AUTO) 0.9 % (0.0-8.0); HEMATOCRIT 27.5 % (36-48); IMMATURE GRANULOCYTE ABSOLUTE 0.07 K/uL (0-1); LYMPHOCYTES # (AUTO) 0.4 K/uL (1.0-4.8); LYMPHOCYTES % (AUTO) 3.8 % (21.0-51.0); MEAN CORPUSCULAR HEMOGLOBIN 31.8 pg (27.0-33.0); MEAN CORPUSCULAR HGB CONC 31.6 g/dL (32.0-36.0); MEAN CORPUSCULAR VOLUME 100.4 fL (79-99); MONOCYTES # (AUTO) 0.5 K/uL (0.1-1.0); MONOCYTES % (AUTO) 3.9 % (3.0-13.0); NEUTROPHILS # (AUTO) 10.6 K/uL (1.8-7.7); NEUTROPHILS % (AUTO) 90.7 % (40.0-77.0); PLATELET COUNT (AUTO) 222 K/uL (130-400); RED BLOOD CELL COUNT(AUTO) 2.74 MIL/uL (4.00-5.50); RED CELL DISTRIBUTION WIDTH 13.8 % (11.0-15.5); WHITE BLOOD COUNT (AUTO) 11.7 K/uL (4.8-10.8)
[2023-04-26 05:14] LABS: CREATININE 1.3 mg/dL (0.5-1.5)
[2023-04-26] MEDS: POTASSIUM CHLORIDE 10% ELIXIR 20 MEQ/15 ML UDCUP PO PRN (06:26)
[2023-04-26] MEDS: IPRATROPIUM 0.5 MG/2.5 ML INH IH SCH ×2 (06:54→14:21)
[2023-04-26] MEDS: INSULIN HUMULIN R 100 UNIT/ML 3ML SQ SCH ×4 (07:01→21:00)
[2023-04-26] MEDS ORDERED: KCL 20 MEQ ERTAB PO ONE (08:00)
[2023-04-26] MEDS ORDERED: AMIODARONE 200 MG TABLET PO ONE (08:00)
[2023-04-26] MEDS: METRONIDAZOLE 500 MG TABLET PO SCH ×2 (08:18→21:43)
[2023-04-26] MEDS: CLOPIDOGREL 75MG TAB PO SCH (08:18)
[2023-04-26] MEDS: FERROUS SULFATE 325 MG TABLET.DR PO SCH (08:19)
[2023-04-26] MEDS: Vitamin B Complex/Vit C/Folic Acid PO SCH (08:19)
[2023-04-26] MEDS: AcetaZOLAMIDE 250 MG TAB PO SCH (08:19)
[2023-04-26] MEDS: METOPROLOL SUCCINATE 25 MG TAB.SR.24H PO SCH (08:19)
[2023-04-26] MEDS: CETIRIZINE HCL 5 MG TABLET PO SCH (08:19)
[2023-04-26] MEDS: ASPIRIN 81 MG EC TAB PO SCH (08:19)
[2023-04-26] MEDS: FUROSEMIDE 40 MG TABLET PO SCH (08:19)
[2023-04-26] MEDS: SACUBITRIL/VALSARTAN 1 EACH TABLET PO SCH (08:19)
[2023-04-26] MEDS: PANTOPRAZOLE 40 MG TAB DR PO SCH ×2 (08:19→21:43)
[2023-04-26] MEDS: TIOTROPIUM BR IH SCH (08:20)
[2023-04-26] MEDS: OLODATEROL HCL IH SCH (08:20)
[2023-04-26] MEDS: MUPIROCIN OINTMENT 22 GM TUBE TP SCH (08:21)
[2023-04-26] MEDS: AMIODARONE 200 MG TABLET PO SCH ×2 (09:00→21:43)
[2023-04-26] MEDS: INSULIN GLARGINE 100 UNITS/ML 10 ML VIAL SQ SCH (09:00)
[2023-04-26] MEDS: RANOLAZINE 500 MG TAB.SR.12H PO SCH ×2 (09:00→21:43)
[2023-04-26] MEDS: ONDANSETRON 4MG INJ IVP PRN (09:01)
[2023-04-26] MEDS: KCL 20 MEQ ERTAB PO SCH (09:01)
[2023-04-26 11:02] LABS: POTASSIUM 3.7 mmol/L (3.5-5.1)
[2023-04-26] MEDS: LACTOBACILLUS RHAMNOSUS GG 1 EACH CAP.SPRINK PO SCH ×2 (12:27→17:32)
[2023-04-26 21:07] LABS: INR 1.29 (0.85-1.15); PROTHROMBIN TIME 14.7 SEC (9.6-11.6)
[2023-04-26] MEDS: ATORVASTATIN 20 MG TABLET PO SCH (21:45)
[2023-04-27] VITALS (24 sets, daily range): BP systolic 101–147; BP diastolic 48–71; PULSE 68–88; RESP 16–22; O2SAT 96–100
[2023-04-27] MEDS: 0.9%NACL 10ML VIAL IV SCH ×4 (00:30→23:37)
[2023-04-27] MEDS: IPRATROPIUM 0.5 MG/2.5 ML INH IH SCH ×4 (02:14→21:16)
[2023-04-27] MEDS: LINEZOLID 600 MG/ISO-OSM 300 ML IV SCH ×3 (02:22→23:57)
[2023-04-27 04:31] LABS: HEMATOCRIT 27.2 % (36-48); MEAN CORPUSCULAR HEMOGLOBIN 32.2 pg (27.0-33.0); MEAN CORPUSCULAR HGB CONC 31.3 g/dL (32.0-36.0); RED BLOOD CELL COUNT(AUTO) 2.64 MIL/uL (4.00-5.50); RED CELL DISTRIBUTION WIDTH 13.7 % (11.0-15.5); WHITE BLOOD COUNT (AUTO) 8.9 K/uL (4.8-10.8)
[2023-04-27 04:39] LABS: CREATININE 1.3 mg/dL (0.5-1.5); POTASSIUM 3.4 mmol/L (3.5-5.1)
[2023-04-27] MEDS: ZOSYN 3.375GM +NS 50ML IVPB SCH ×3 (04:53→19:40)
[2023-04-27] MEDS: INSULIN HUMULIN R 100 UNIT/ML 3ML SQ SCH ×4 (06:20→20:47)
[2023-04-27] MEDS: ACETYLCYSTEINE 600 MG CAPSULE PO SCH ×4 (06:24→17:04)
[2023-04-27] MEDS ORDERED: FENTANYL CITRATE PF 50 MCG/1 ML 2ML VIAL ONE (08:30)
[2023-04-27] MEDS ORDERED: IODIXANOL 320 MG/ML 100 ML VIAL ONE (08:30)
[2023-04-27] MEDS ORDERED: MIDAZOLAM HCL 1 MG/ML 2ML VIAL ONE (08:30)
[2023-04-27] MEDS ORDERED: LIDOCAINE HCL 400MG/20ML VIAL ONE (08:30)
[2023-04-27] MEDS ORDERED: HEPARIN 10,000 UNIT/10ML (1,000 UNIT/ML) VIAL ONE (08:31)
[2023-04-27] MEDS ORDERED: NITROGLYCERIN 50MG VIAL ONE (08:31)
[2023-04-27] MEDS: MUPIROCIN OINTMENT 22 GM TUBE TP SCH (09:00)
[2023-04-27] MEDS: TIOTROPIUM BR IH SCH (09:00)
[2023-04-27] MEDS: OLODATEROL HCL IH SCH (09:00)
[2023-04-27] MEDS: INSULIN GLARGINE 100 UNITS/ML 10 ML VIAL SQ SCH (09:00)
[2023-04-27] MEDS: KCL 20 MEQ ERTAB PO SCH (09:00)
[2023-04-27] MEDS: ASPIRIN 81 MG EC TAB PO SCH (09:00)
[2023-04-27] MEDS: CLOPIDOGREL 75MG TAB PO SCH (09:00)
[2023-04-27] MEDS ORDERED: 0.9%NACL 1000ML 1,000 ML IV SCH (10:00)
[2023-04-27] MEDS: AcetaZOLAMIDE 250 MG TAB PO SCH (11:32)
[2023-04-27] MEDS: PANTOPRAZOLE 40 MG TAB DR PO SCH ×2 (11:32→20:32)
[2023-04-27] MEDS: LACTOBACILLUS RHAMNOSUS GG 1 EACH CAP.SPRINK PO SCH ×2 (11:33→17:04)
[2023-04-27] MEDS: Vitamin B Complex/Vit C/Folic Acid PO SCH (11:33)
[2023-04-27] MEDS: METOPROLOL SUCCINATE 25 MG TAB.SR.24H PO SCH (11:33)
[2023-04-27] MEDS: SACUBITRIL/VALSARTAN 1 EACH TABLET PO SCH (11:33)
[2023-04-27] MEDS: CETIRIZINE HCL 5 MG TABLET PO SCH (11:33)
[2023-04-27] MEDS: AMIODARONE 200 MG TABLET PO SCH ×2 (11:33→20:32)
[2023-04-27] MEDS: RANOLAZINE 500 MG TAB.SR.12H PO SCH ×2 (11:33→20:47)
[2023-04-27] MEDS: FERROUS SULFATE 325 MG TABLET.DR PO SCH (11:37)
[2023-04-27] MEDS: METRONIDAZOLE 500 MG TABLET PO SCH ×2 (11:37→20:32)
[2023-04-27] MEDS: FUROSEMIDE 40 MG TABLET PO SCH (11:37)
[2023-04-27] MEDS: ATORVASTATIN 20 MG TABLET PO SCH (20:48)
[2023-04-27] MEDS: AMIODARONE 900MG VIAL 540 MG in DEXTROSE 5%-WATER 300 ML IV SCH (21:05)
[2023-04-28] VITALS (14 sets, daily range): BP systolic 83–115; BP diastolic 41–56; PULSE 61–115; RESP 16–23; O2SAT 96–100
[2023-04-28] MEDS: ZOSYN 3.375GM +NS 50ML IVPB SCH ×3 (02:57→20:09)
[2023-04-28 05:15] LABS: BASOPHILS # (AUTO) 0.02 K/uL (0.00-0.20); BASOPHILS % (AUTO) 0.2 % (0.0-5.0); EOSINOPHILS # (AUTO) 0.12 K/uL (0.00-0.70); EOSINOPHILS % (AUTO) 1.3 % (0.0-8.0); HEMATOCRIT 24.4 % (36-48); IMMATURE GRANULOCYTE ABSOLUTE 0.07 K/uL (0-1); LYMPHOCYTES # (AUTO) 0.6 K/uL (1.0-4.8); LYMPHOCYTES % (AUTO) 6.8 % (21.0-51.0); MEAN CORPUSCULAR HEMOGLOBIN 32.2 pg (27.0-33.0); MEAN CORPUSCULAR HGB CONC 31.1 g/dL (32.0-36.0); MEAN CORPUSCULAR VOLUME 103.4 fL (79-99); MONOCYTES # (AUTO) 0.5 K/uL (0.1-1.0); MONOCYTES % (AUTO) 5.6 % (3.0-13.0); NEUTROPHILS # (AUTO) 7.9 K/uL (1.8-7.7); NEUTROPHILS % (AUTO) 85.3 % (40.0-77.0); NUCLEATED RED BLOOD CELLS 0.2 % (0.0-0.19); PLATELET COUNT (AUTO) 187 K/uL (130-400); RED BLOOD CELL COUNT(AUTO) 2.36 MIL/uL (4.00-5.50); WHITE BLOOD COUNT (AUTO) 9.3 K/uL (4.8-10.8)
[2023-04-28 05:20] LABS: CREATININE 1.4 mg/dL (0.5-1.5); POTASSIUM 3.9 mmol/L (3.5-5.1)
[2023-04-28] MEDS: INSULIN HUMULIN R 100 UNIT/ML 3ML SQ SCH ×4 (06:00→21:00)
[2023-04-28] MEDS: IPRATROPIUM 0.5 MG/2.5 ML INH IH SCH ×3 (06:15→23:09)
[2023-04-28] MEDS: INSULIN GLARGINE 100 UNITS/ML 10 ML VIAL SQ SCH (09:00)
[2023-04-28] MEDS: TIOTROPIUM BR IH SCH (09:00)
[2023-04-28] MEDS: OLODATEROL HCL IH SCH (09:00)
[2023-04-28] MEDS: 0.9%NACL 10ML VIAL IV SCH ×2 (10:19→16:14)
[2023-04-28] MEDS: MUPIROCIN OINTMENT 22 GM TUBE TP SCH (10:20)
[2023-04-28] MEDS: METRONIDAZOLE 500 MG TABLET PO SCH ×2 (10:46→20:10)
[2023-04-28] MEDS: CETIRIZINE HCL 5 MG TABLET PO SCH (10:46)
[2023-04-28] MEDS: Vitamin B Complex/Vit C/Folic Acid PO SCH (10:46)
[2023-04-28] MEDS: FERROUS SULFATE 325 MG TABLET.DR PO SCH (10:46)
[2023-04-28] MEDS: SACUBITRIL/VALSARTAN 1 EACH TABLET PO SCH (10:46)
[2023-04-28] MEDS: PANTOPRAZOLE 40 MG TAB DR PO SCH ×2 (10:46→20:09)
[2023-04-28] MEDS: METOPROLOL SUCCINATE 25 MG TAB.SR.24H PO SCH (10:47)
[2023-04-28] MEDS: AMIODARONE 200 MG TABLET PO SCH ×2 (10:47→20:09)
[2023-04-28] MEDS: RANOLAZINE 500 MG TAB.SR.12H PO SCH ×2 (10:47→20:09)
[2023-04-28] MEDS: AcetaZOLAMIDE 250 MG TAB PO SCH (10:47)
[2023-04-28] MEDS: CLOPIDOGREL 75MG TAB PO SCH (10:47)
[2023-04-28] MEDS: ASPIRIN 81 MG EC TAB PO SCH (10:47)
[2023-04-28] MEDS: KCL 20 MEQ ERTAB PO SCH (10:47)
[2023-04-28] MEDS: FUROSEMIDE 40 MG TABLET PO SCH (10:48)
[2023-04-28] MEDS ORDERED: AMIODARONE 900MG VIAL 150 MG in DEXTROSE 5%-WATER 100 ML IV SCH (13:00)
[2023-04-28] MEDS: LINEZOLID 600 MG/ISO-OSM 300 ML IV SCH (13:25)
[2023-04-28] MEDS: LACTOBACILLUS RHAMNOSUS GG 1 EACH CAP.SPRINK PO SCH ×2 (13:25→17:56)
[2023-04-28] MEDS: AMIODARONE 900MG VIAL 540 MG in DEXTROSE 5%-WATER 300 ML IV SCH (15:42)
[2023-04-28] MEDS ORDERED: DIPHENHYDRAMINE HCL 25 MG CAPSULE PO PRN (16:00)
[2023-04-28] MEDS: ATORVASTATIN 20 MG TABLET PO SCH (20:10)
[2023-04-29] VITALS (13 sets, daily range): BP systolic 100–120; BP diastolic 42–62; PULSE 62–114; RESP 16–22; O2SAT 99–100
[2023-04-29] MEDS: LINEZOLID 600 MG/ISO-OSM 300 ML IV SCH ×2 (00:35→12:09)
[2023-04-29] MEDS: 0.9%NACL 10ML VIAL IV SCH ×2 (00:36→08:30)
[2023-04-29] MEDS: ZOSYN 3.375GM +NS 50ML IVPB SCH ×3 (04:26→18:05)
[2023-04-29 04:45] LABS: CREATININE 1.9 mg/dL (0.5-1.5); MAGNESIUM 1.9 mg/dL (1.80-2.40); POTASSIUM 4.1 mmol/L (3.5-5.1)
[2023-04-29 05:50] LABS: HEMATOCRIT 21.1 % (36-48); MEAN CORPUSCULAR HEMOGLOBIN 32.5 pg (27.0-33.0); MEAN CORPUSCULAR HGB CONC 31.8 g/dL (32.0-36.0); MEAN CORPUSCULAR VOLUME 102.4 fL (79-99); RED BLOOD CELL COUNT(AUTO) 2.06 MIL/uL (4.00-5.50); RED CELL DISTRIBUTION WIDTH 14.2 % (11.0-15.5); WHITE BLOOD COUNT (AUTO) 8.3 K/uL (4.8-10.8)
[2023-04-29] MEDS: IPRATROPIUM 0.5 MG/2.5 ML INH IH SCH ×3 (06:16→23:06)
[2023-04-29] MEDS: INSULIN HUMULIN R 100 UNIT/ML 3ML SQ SCH ×4 (06:18→20:23)
[2023-04-29] MEDS: INSULIN GLARGINE 100 UNITS/ML 10 ML VIAL SQ SCH (09:00)
[2023-04-29] MEDS: OLODATEROL HCL IH SCH (09:00)
[2023-04-29] MEDS: TIOTROPIUM BR IH SCH (09:00)
[2023-04-29] MEDS: KCL 20 MEQ ERTAB PO SCH (09:54)
[2023-04-29] MEDS: SACUBITRIL/VALSARTAN 1 EACH TABLET PO SCH (09:54)
[2023-04-29] MEDS: RANOLAZINE 500 MG TAB.SR.12H PO SCH ×2 (09:54→20:23)
[2023-04-29] MEDS: ASPIRIN 81 MG EC TAB PO SCH (09:54)
[2023-04-29] MEDS: AcetaZOLAMIDE 250 MG TAB PO SCH (09:54)
[2023-04-29] MEDS: METOPROLOL SUCCINATE 25 MG TAB.SR.24H PO SCH (09:54)
[2023-04-29] MEDS: FERROUS SULFATE 325 MG TABLET.DR PO SCH (09:54)
[2023-04-29] MEDS: Vitamin B Complex/Vit C/Folic Acid PO SCH (09:55)
[2023-04-29] MEDS: FUROSEMIDE 40 MG TABLET PO SCH (09:55)
[2023-04-29] MEDS: PANTOPRAZOLE 40 MG TAB DR PO SCH ×2 (09:55→20:23)
[2023-04-29] MEDS: METRONIDAZOLE 500 MG TABLET PO SCH ×2 (09:55→20:24)
[2023-04-29] MEDS: AMIODARONE 200 MG TABLET PO SCH ×2 (09:55→20:24)
[2023-04-29] MEDS: CETIRIZINE HCL 5 MG TABLET PO SCH (09:57)
[2023-04-29] MEDS: MUPIROCIN OINTMENT 22 GM TUBE TP SCH (10:05)
[2023-04-29] MEDS: AMIODARONE 900MG VIAL 540 MG in DEXTROSE 5%-WATER 300 ML IV SCH (10:19)
[2023-04-29] MEDS: CLOPIDOGREL 75MG TAB PO SCH (12:05)
[2023-04-29] MEDS: LACTOBACILLUS RHAMNOSUS GG 1 EACH CAP.SPRINK PO SCH ×2 (12:09→18:05)
[2023-04-29] MEDS: ONDANSETRON 4MG INJ IVP PRN (12:30)
[2023-04-29] MEDS: ATORVASTATIN 20 MG TABLET PO SCH (20:23)
[2023-04-30] VITALS (31 sets, daily range): BP systolic 84–148; BP diastolic 36–75; PULSE 56–121; RESP 10–25; TEMP 97.5; O2SAT 1–100
[2023-04-30] MEDS: LINEZOLID 600 MG/ISO-OSM 300 ML IV SCH ×3 (01:52→23:09)
[2023-04-30] MEDS: 0.9%NACL 10ML VIAL IV SCH ×3 (01:53→16:30)
[2023-04-30 04:25] LABS: ABG HCO3 23.2 mmol/L (21.0-28.0); ABG OXYGEN SATURATION 96.9 % (95.0-99.0); ABG PCO2 41 mmHg (32-45); ABG PH 7.368 (7.35-7.450); PO2, ARTERIAL BG 93.4 mmHg (83.0-108.0)
[2023-04-30 04:56] LABS: MEAN CORPUSCULAR HEMOGLOBIN 32.1 pg (27.0-33.0); MEAN CORPUSCULAR HGB CONC 31.7 g/dL (32.0-36.0); MEAN CORPUSCULAR VOLUME 101.3 fL (79-99); RED BLOOD CELL COUNT(AUTO) 2.37 MIL/uL (4.00-5.50); RED CELL DISTRIBUTION WIDTH 15.7 % (11.0-15.5)
[2023-04-30] MEDS: AMIODARONE 900MG VIAL 540 MG in DEXTROSE 5%-WATER 300 ML IV SCH ×2 (04:56→23:33)
[2023-04-30 05:01] LABS: CREATININE 1.8 mg/dL (0.5-1.5); POTASSIUM 3.9 mmol/L (3.5-5.1)
[2023-04-30 05:06] LABS: INR 1.62 (0.85-1.15); PROTHROMBIN TIME 18.2 SEC (9.6-11.6)
[2023-04-30] MEDS: INSULIN HUMULIN R 100 UNIT/ML 3ML SQ SCH ×4 (06:11→23:10)
[2023-04-30] MEDS: IPRATROPIUM 0.5 MG/2.5 ML INH IH SCH ×3 (06:26→21:40)
[2023-04-30] MEDS: AcetaZOLAMIDE 250 MG TAB PO SCH (08:57)
[2023-04-30] MEDS: FERROUS SULFATE 325 MG TABLET.DR PO SCH (08:57)
[2023-04-30] MEDS: ASPIRIN 81 MG EC TAB PO SCH (08:57)
[2023-04-30] MEDS: FUROSEMIDE 40 MG TABLET PO SCH (08:58)
[2023-04-30] MEDS: Vitamin B Complex/Vit C/Folic Acid PO SCH (08:58)
[2023-04-30] MEDS: AMIODARONE 200 MG TABLET PO SCH ×2 (08:58→22:38)
[2023-04-30] MEDS: RANOLAZINE 500 MG TAB.SR.12H PO SCH ×2 (08:59→22:38)
[2023-04-30] MEDS: METOPROLOL SUCCINATE 25 MG TAB.SR.24H PO SCH (08:59)
[2023-04-30] MEDS: PANTOPRAZOLE 40 MG TAB DR PO SCH ×2 (08:59→22:38)
[2023-04-30] MEDS: CLOPIDOGREL 75MG TAB PO SCH (08:59)
[2023-04-30] MEDS: METRONIDAZOLE 500 MG TABLET PO SCH ×2 (09:00→22:38)
[2023-04-30] MEDS: CETIRIZINE HCL 5 MG TABLET PO SCH (09:00)
[2023-04-30] MEDS: KCL 20 MEQ ERTAB PO SCH (09:00)
[2023-04-30] MEDS: INSULIN GLARGINE 100 UNITS/ML 10 ML VIAL SQ SCH (09:00)
[2023-04-30] MEDS: OLODATEROL HCL IH SCH (09:02)
[2023-04-30] MEDS: TIOTROPIUM BR IH SCH (09:02)
[2023-04-30] MEDS: MUPIROCIN OINTMENT 22 GM TUBE TP SCH (09:03)
[2023-04-30] MEDS: LACTOBACILLUS RHAMNOSUS GG 1 EACH CAP.SPRINK PO SCH ×2 (12:00→17:00)
[2023-04-30] MEDS ORDERED: SUCCINYLCHOLINE CHLORIDE 20 MG/ML 10 ML VIAL ONE (16:35)
[2023-04-30] MEDS ORDERED: ROCURONIUM 10MG/1ML SYR 10 MG/ML ML ONE (16:35)
[2023-04-30] MEDS ORDERED: KETAMINE 50MG/ML SYRINGE 50 MG/ML DISP.SYRIN ONE (16:35)
[2023-04-30] MEDS ORDERED: MIDAZOLAM HCL 1 MG/ML 2ML VIAL ONE (16:35)
[2023-04-30] MEDS ORDERED: LIDOCAINE PF 100MG/5ML (2%) SYRINGE 5ML ONE (16:35)
[2023-04-30] MEDS ORDERED: FENTANYL CITRATE PF 50 MCG/1 ML 2ML VIAL ONE (16:35)
[2023-04-30] MEDS ORDERED: ACETAMINOPHEN 325 MG TAB PO PRN (17:00)
[2023-04-30 17:07] LABS: ABG HCO3 22.3 mmol/L (21.0-28.0); ABG PCO2 46 mmHg (32-45); ABG PH 7.302 (7.35-7.450); CARBON MONOXIDE 0.6; DEVICE COMMENT 1; HHb 0; PO2, ARTERIAL BG 349.8 mmHg (83.0-108.0)
[2023-04-30] MEDS ORDERED: SUGAMMADEX SODIUM 200 MG/2 ML VIAL IV ONE (18:48)
[2023-04-30] MEDS ORDERED: EPHEDRINE SULFATE 50 MG/ML AMPULE ONE (18:56)
[2023-04-30] MEDS ORDERED: ALBUMIN (HUMAN) 5% 250 ML IV ONE (19:24)
[2023-04-30] MEDS ORDERED: NOREPINEPHRINE BITARTRATE 1 MG/1 ML ML IV ONE (19:24)
[2023-04-30] MEDS: ATORVASTATIN 20 MG TABLET PO SCH (22:38)
[2023-05-01] VITALS (84 sets, daily range): BP systolic 85–160; BP diastolic 27–95; PULSE 68–135; RESP 8–36; O2SAT 99–100
[2023-05-01] MEDS: CEFAZOLIN SODIUM 1 GM VIAL IVPB SCH ×3 (01:00→16:19)
[2023-05-01] MEDS ORDERED: AMIODARONE 150MG VIAL ONE (01:57)
[2023-05-01] MEDS ORDERED: AMIODARONE 900MG VIAL IV ONE (01:58)
[2023-05-01] MEDS ORDERED: AMIODARONE 900MG VIAL 150 MG in DEXTROSE 5%-WATER 100 ML IV SCH (02:00)
[2023-05-01] MEDS ORDERED: AMIODARONE 900MG VIAL 360 MG in DEXTROSE 5%-WATER 200 ML IV SCH (02:00)
[2023-05-01] MEDS: AMIODARONE 900MG VIAL 540 MG in DEXTROSE 5%-WATER 300 ML IV SCH ×2 (02:00→20:26)
[2023-05-01 02:13] LABS: BASOPHILS # (AUTO) 0.03 K/uL (0.00-0.20); BASOPHILS % (AUTO) 0.3 % (0.0-5.0); EOSINOPHILS # (AUTO) 0.02 K/uL (0.00-0.70); EOSINOPHILS % (AUTO) 0.2 % (0.0-8.0); HEMATOCRIT 22.5 % (36-48); IMMATURE GRANULOCYTE ABSOLUTE 0.09 K/uL (0-1); LYMPHOCYTES # (AUTO) 0.7 K/uL (1.0-4.8); LYMPHOCYTES % (AUTO) 6.3 % (21.0-51.0); MEAN CORPUSCULAR HEMOGLOBIN 31.4 pg (27.0-33.0); MEAN CORPUSCULAR HGB CONC 31.1 g/dL (32.0-36.0); MEAN CORPUSCULAR VOLUME 100.9 fL (79-99); MONOCYTES # (AUTO) 0.7 K/uL (0.1-1.0); NEUTROPHILS # (AUTO) 9.4 K/uL (1.8-7.7); NEUTROPHILS % (AUTO) 86.4 % (40.0-77.0); PLATELET COUNT (AUTO) 120 K/uL (130-400); RED BLOOD CELL COUNT(AUTO) 2.23 MIL/uL (4.00-5.50); RED CELL DISTRIBUTION WIDTH 15.4 % (11.0-15.5); WHITE BLOOD COUNT (AUTO) 10.9 K/uL (4.8-10.8)
[2023-05-01] MEDS: 0.9%NACL 10ML VIAL IV SCH ×3 (02:17→16:19)
[2023-05-01 02:21] LABS: CREATININE 1.6 mg/dL (0.5-1.5); POTASSIUM 3.8 mmol/L (3.5-5.1)
[2023-05-01 02:31] LABS: BILIRUBIN,TOTAL 0.5 mg/dL (0.2-1.0); TOTAL PROTEIN, SERUM 5.3 g/dL (6.0-8.3)
[2023-05-01] MEDS ORDERED: PHENYLEPHRINE HCL 10 MG/ML 5ML VIAL IV ONE (02:40)
[2023-05-01] MEDS: TRAMADOL HCL 50 MG TABLET PO PRN ×3 (03:57→14:53)
[2023-05-01] MEDS: INSULIN HUMULIN R 100 UNIT/ML 3ML SQ SCH ×4 (06:27→20:26)
[2023-05-01] MEDS: PHENYLEPHRINE HCL 100 MG in 0.9% NACL 250ML 240 ML IV PRN (06:29)
[2023-05-01] MEDS: IPRATROPIUM 0.5 MG/2.5 ML INH IH SCH ×3 (06:39→22:33)
[2023-05-01] MEDS: ACETAMINOPHEN 325 MG TAB PO PRN ×2 (07:06→16:23)
[2023-05-01] MEDS: FERROUS SULFATE 325 MG TABLET.DR PO SCH (08:13)
[2023-05-01] MEDS: METOPROLOL SUCCINATE 25 MG TAB.SR.24H PO SCH (08:13)
[2023-05-01] MEDS: AcetaZOLAMIDE 250 MG TAB PO SCH (08:13)
[2023-05-01] MEDS: METRONIDAZOLE 500 MG TABLET PO SCH ×2 (08:13→20:24)
[2023-05-01] MEDS: ASPIRIN 81 MG EC TAB PO SCH (08:13)
[2023-05-01] MEDS: PANTOPRAZOLE 40 MG TAB DR PO SCH ×2 (08:14→20:24)
[2023-05-01] MEDS: Vitamin B Complex/Vit C/Folic Acid PO SCH (08:14)
[2023-05-01] MEDS: CLOPIDOGREL 75MG TAB PO SCH (08:14)
[2023-05-01] MEDS: CETIRIZINE HCL 5 MG TABLET PO SCH (08:14)
[2023-05-01] MEDS: KCL 20 MEQ ERTAB PO SCH (08:14)
[2023-05-01] MEDS: RANOLAZINE 500 MG TAB.SR.12H PO SCH ×2 (08:15→20:25)
[2023-05-01] MEDS: INSULIN GLARGINE 100 UNITS/ML 10 ML VIAL SQ SCH (08:16)
[2023-05-01] MEDS: MUPIROCIN OINTMENT 22 GM TUBE TP SCH (08:17)
[2023-05-01] MEDS: FUROSEMIDE 40 MG TABLET PO SCH (08:18)
[2023-05-01] MEDS: TIOTROPIUM BR IH SCH (08:18)
[2023-05-01] MEDS: OLODATEROL HCL IH SCH (08:18)
[2023-05-01] MEDS: AMIODARONE 200 MG TABLET PO SCH ×2 (08:18→20:24)
[2023-05-01 08:54] LABS: BASOPHILS # (AUTO) 0.02 K/uL (0.00-0.20); BASOPHILS % (AUTO) 0.2 % (0.0-5.0); EOSINOPHILS # (AUTO) 0.02 K/uL (0.00-0.70); EOSINOPHILS % (AUTO) 0.2 % (0.0-8.0); HEMATOCRIT 25.6 % (36-48); IMMATURE GRANULOCYTE ABSOLUTE 0.05 K/uL (0-1); LYMPHOCYTES # (AUTO) 0.5 K/uL (1.0-4.8); LYMPHOCYTES % (AUTO) 5.2 % (21.0-51.0); MEAN CORPUSCULAR HEMOGLOBIN 31.3 pg (27.0-33.0); MEAN CORPUSCULAR VOLUME 97.7 fL (79-99); MONOCYTES # (AUTO) 0.5 K/uL (0.1-1.0); MONOCYTES % (AUTO) 5.2 % (3.0-13.0); NEUTROPHILS # (AUTO) 7.9 K/uL (1.8-7.7); NEUTROPHILS % (AUTO) 88.6 % (40.0-77.0); NUCLEATED RED BLOOD CELLS 0.3 % (0.0-0.19); PLATELET COUNT (AUTO) 106 K/uL (130-400); RED BLOOD CELL COUNT(AUTO) 2.62 MIL/uL (4.00-5.50); RED CELL DISTRIBUTION WIDTH 15.7 % (11.0-15.5); WHITE BLOOD COUNT (AUTO) 8.9 K/uL (4.8-10.8)
[2023-05-01] MEDS ORDERED: CLOPIDOGREL 75MG TAB PO SCH (09:00)
[2023-05-01 09:07] LABS: BILIRUBIN,TOTAL 0.5 mg/dL (0.2-1.0); CREATININE 1.6 mg/dL (0.5-1.5); MAGNESIUM 1.8 mg/dL (1.80-2.40); POTASSIUM 3.5 mmol/L (3.5-5.1); TOTAL PROTEIN, SERUM 5.2 g/dL (6.0-8.3)
[2023-05-01] MEDS: LACTOBACILLUS RHAMNOSUS GG 1 EACH CAP.SPRINK PO SCH ×2 (12:09→16:19)
[2023-05-01] MEDS: LINEZOLID 600 MG/ISO-OSM 300 ML IV SCH (12:09)
[2023-05-01] MEDS: METOPROLOL TARTRATE 1 MG/ML 5ML VIAL IV PRN (13:31)
[2023-05-01] MEDS ORDERED: HEPARIN 25,000 UNITS/250ML D5W 250 ML IV SCH (14:00)
[2023-05-01] MEDS ORDERED: HEPARIN 5,000 UNIT VIAL SQ PRN (14:00)
[2023-05-01] MEDS: HEPARIN 25,000 UNITS/250ML D5W 250 ML IV SCH (14:08)
[2023-05-01] MEDS: ATORVASTATIN 20 MG TABLET PO SCH (20:24)
[2023-05-02] VITALS (88 sets, daily range): BP systolic 72–151; BP diastolic 33–87; PULSE 67–118; RESP 9–42; TEMP 97.1–97.9; O2SAT 100
[2023-05-02] MEDS: LINEZOLID 600 MG/ISO-OSM 300 ML IV SCH ×2 (00:08→12:07)
[2023-05-02] MEDS: 0.9%NACL 10ML VIAL IV SCH ×3 (00:08→17:20)
[2023-05-02] MEDS: TRAMADOL HCL 50 MG TABLET PO PRN ×3 (02:39→20:03)
[2023-05-02 04:16] LABS: BASOPHILS # (AUTO) 0.02 K/uL (0.00-0.20); BASOPHILS % (AUTO) 0.2 % (0.0-5.0); EOSINOPHILS # (AUTO) 0.19 K/uL (0.00-0.70); EOSINOPHILS % (AUTO) 2.3 % (0.0-8.0); HEMATOCRIT 23.6 % (36-48); IMMATURE GRANULOCYTE ABSOLUTE 0.07 K/uL (0-1); LYMPHOCYTES # (AUTO) 0.8 K/uL (1.0-4.8); LYMPHOCYTES % (AUTO) 9.9 % (21.0-51.0); MEAN CORPUSCULAR HGB CONC 31.8 g/dL (32.0-36.0); MEAN CORPUSCULAR VOLUME 97.5 fL (79-99); MONOCYTES # (AUTO) 0.5 K/uL (0.1-1.0); MONOCYTES % (AUTO) 6.3 % (3.0-13.0); NEUTROPHILS # (AUTO) 6.6 K/uL (1.8-7.7); NEUTROPHILS % (AUTO) 80.4 % (40.0-77.0); PLATELET COUNT (AUTO) 85 K/uL (130-400); RED BLOOD CELL COUNT(AUTO) 2.42 MIL/uL (4.00-5.50); RED CELL DISTRIBUTION WIDTH 16.2 % (11.0-15.5); WHITE BLOOD COUNT (AUTO) 8.2 K/uL (4.8-10.8)
[2023-05-02 04:31] LABS: INR 2.24 (0.85-1.15); PROTHROMBIN TIME 24.7 SEC (9.6-11.6)
[2023-05-02 04:35] LABS: CREATININE 1.6 mg/dL (0.5-1.5); MAGNESIUM 2.8 mg/dL (1.80-2.40); PHOSPHORUS 2.7 mg/dL (2.5-4.9); POTASSIUM 3.7 mmol/L (3.5-5.1)
[2023-05-02 04:38] LABS: PARTIAL THROMBOPLASTIN TIME 25.4 SEC (26.3-35.5)
[2023-05-02] MEDS: ACETAMINOPHEN 325 MG TAB PO PRN (05:16)
[2023-05-02] MEDS: IPRATROPIUM 0.5 MG/2.5 ML INH IH SCH ×3 (07:02→21:52)
[2023-05-02] MEDS: LOPERAMIDE HCL 2 MG CAP PO PRN (07:51)
[2023-05-02] MEDS: INSULIN HUMULIN R 100 UNIT/ML 3ML SQ SCH ×4 (07:54→20:16)
[2023-05-02] MEDS: ONDANSETRON 4MG INJ IVP PRN (08:22)
[2023-05-02] MEDS: OLODATEROL HCL IH SCH (08:53)
[2023-05-02] MEDS: AcetaZOLAMIDE 250 MG TAB PO SCH (08:53)
[2023-05-02] MEDS: TIOTROPIUM BR IH SCH (08:53)
[2023-05-02] MEDS: FERROUS SULFATE 325 MG TABLET.DR PO SCH (08:54)
[2023-05-02] MEDS: METRONIDAZOLE 500 MG TABLET PO SCH ×2 (08:54→20:02)
[2023-05-02] MEDS: ASPIRIN 81 MG EC TAB PO SCH (08:54)
[2023-05-02] MEDS: Vitamin B Complex/Vit C/Folic Acid PO SCH (08:55)
[2023-05-02] MEDS: KCL 20 MEQ ERTAB PO SCH (08:55)
[2023-05-02] MEDS: AMIODARONE 200 MG TABLET PO SCH ×2 (08:55→20:02)
[2023-05-02] MEDS: FUROSEMIDE 40 MG TABLET PO SCH (08:55)
[2023-05-02] MEDS: METOPROLOL SUCCINATE 25 MG TAB.SR.24H PO SCH (08:55)
[2023-05-02] MEDS: RANOLAZINE 500 MG TAB.SR.12H PO SCH ×2 (08:55→20:05)
[2023-05-02] MEDS: PANTOPRAZOLE 40 MG TAB DR PO SCH ×2 (08:55→20:02)
[2023-05-02] MEDS: CETIRIZINE HCL 5 MG TABLET PO SCH (08:56)
[2023-05-02] MEDS: CLOPIDOGREL 75MG TAB PO SCH (08:56)
[2023-05-02] MEDS: INSULIN GLARGINE 100 UNITS/ML 10 ML VIAL SQ SCH (09:09)
[2023-05-02] MEDS: MUPIROCIN OINTMENT 22 GM TUBE TP SCH (09:11)
[2023-05-02] MEDS ORDERED: HYDRALAZINE 20MG/ML VIAL IV PRN (09:30)
[2023-05-02] MEDS: METOPROLOL TARTRATE 1 MG/ML 5ML VIAL IV PRN (11:43)
[2023-05-02] MEDS: LACTOBACILLUS RHAMNOSUS GG 1 EACH CAP.SPRINK PO SCH ×2 (12:50→17:20)
[2023-05-02] MEDS: AMIODARONE 900MG VIAL 540 MG in DEXTROSE 5%-WATER 300 ML IV SCH (15:14)
[2023-05-02] MEDS: ATORVASTATIN 20 MG TABLET PO SCH (20:02)
[2023-05-02] MEDS: ENOXAPARIN SODIUM 30 MG/0.3 ML SQ SCH (20:03)
[2023-05-03] VITALS (109 sets, daily range): BP systolic 67–171; BP diastolic 28–109; PULSE 85–116; RESP 8–37; TEMP 98.1–98.6; O2SAT 98–100
[2023-05-03] MEDS: LINEZOLID 600 MG/ISO-OSM 300 ML IV SCH ×2 (00:03→11:38)
[2023-05-03] MEDS: 0.9%NACL 10ML VIAL IV SCH ×3 (00:03→16:30)
[2023-05-03 03:48] LABS: HEMATOCRIT 22.8 % (36-48); MEAN CORPUSCULAR HGB CONC 31.1 g/dL (32.0-36.0); MEAN CORPUSCULAR VOLUME 99.6 fL (79-99); PLATELET COUNT (AUTO) 95 K/uL (130-400); RED BLOOD CELL COUNT(AUTO) 2.29 MIL/uL (4.00-5.50); RED CELL DISTRIBUTION WIDTH 16.5 % (11.0-15.5); WHITE BLOOD COUNT (AUTO) 9.9 K/uL (4.8-10.8)
[2023-05-03 03:55] LABS: ALANINE AMINOTRANSFERASE < 6 U/L (12-78); ALBUMIN 1.8 g/dL (3.5-5.0); ASPARTATE AMINOTRANSFERASE 15 U/L (10-37); BILIRUBIN,TOTAL 0.3 mg/dL (0.2-1.0); CARBON DIOXIDE 21 mmol/L (21-32); CHLORIDE 103 mmol/L (101-111); CREATININE 1.8 mg/dL (0.5-1.5); GLOMERULAR FILTR. RATE CALC 31 mL/min (>90); GLUCOSE,RANDOM 189 mg/dL (70-105); PHOSPHORUS 3.6 mg/dL (2.5-4.9); POTASSIUM 4.3 mmol/L (3.5-5.1); SODIUM SERUM 135 mmol/L (136-145); TOTAL PROTEIN, SERUM 5.1 g/dL (6.0-8.3); UREA NITROGEN, BLOOD 47 mg/dL (7-18)
[2023-05-03 04:06] LABS: BASOPHILS % (MANUAL) 1 % (0-2); LYMPHOCYTES % (MANUAL) 19 % (22-44); MAN.DIFF COMMENT-IMPRESSION MANUAL DIFFERENTIAL; SEGMENTED NEUTROPHILS % 80 % (40-70); TOTAL CELLS COUNTED 100
[2023-05-03 04:08] LABS: PLATELET MORPHOLOGY COMMENT DECREASED; WBC MORPHOLOGY NORMAL
[2023-05-03] MEDS: INSULIN HUMULIN R 100 UNIT/ML 3ML SQ SCH ×4 (06:27→21:23)
[2023-05-03] MEDS: IPRATROPIUM 0.5 MG/2.5 ML INH IH SCH ×3 (06:30→22:28)
[2023-05-03] MEDS: PHENYLEPHRINE HCL 100 MG in 0.9% NACL 250ML 240 ML IV PRN (07:55)
[2023-05-03] MEDS: METRONIDAZOLE 500 MG TABLET PO SCH ×2 (08:27→20:52)
[2023-05-03] MEDS: ENOXAPARIN SODIUM 30 MG/0.3 ML SQ SCH ×2 (08:27→20:53)
[2023-05-03] MEDS: Vitamin B Complex/Vit C/Folic Acid PO SCH (08:28)
[2023-05-03] MEDS: AMIODARONE 200 MG TABLET PO SCH ×2 (08:28→20:52)
[2023-05-03] MEDS: RANOLAZINE 500 MG TAB.SR.12H PO SCH ×2 (08:28→20:51)
[2023-05-03] MEDS: CLOPIDOGREL 75MG TAB PO SCH (08:28)
[2023-05-03] MEDS: PANTOPRAZOLE 40 MG TAB DR PO SCH ×2 (08:28→20:52)
[2023-05-03] MEDS: AcetaZOLAMIDE 250 MG TAB PO SCH (08:29)
[2023-05-03] MEDS: FUROSEMIDE 40 MG TABLET PO SCH (08:29)
[2023-05-03] MEDS: KCL 20 MEQ ERTAB PO SCH (08:29)
[2023-05-03] MEDS: FERROUS SULFATE 325 MG TABLET.DR PO SCH (08:29)
[2023-05-03] MEDS: ASPIRIN 81 MG EC TAB PO SCH (08:30)
[2023-05-03] MEDS: INSULIN GLARGINE 100 UNITS/ML 10 ML VIAL SQ SCH (08:30)
[2023-05-03] MEDS: CETIRIZINE HCL 5 MG TABLET PO SCH (08:30)
[2023-05-03] MEDS: METOPROLOL TARTRATE 25 MG TAB PO SCH ×2 (08:32→21:00)
[2023-05-03] MEDS: MUPIROCIN OINTMENT 22 GM TUBE TP SCH (08:34)
[2023-05-03] MEDS: TRAMADOL HCL 50 MG TABLET PO PRN (09:15)
[2023-05-03] MEDS: AMIODARONE 900MG VIAL 540 MG in DEXTROSE 5%-WATER 300 ML IV SCH (09:51)
[2023-05-03] MEDS: OLODATEROL HCL IH SCH (10:36)
[2023-05-03] MEDS: TIOTROPIUM BR IH SCH (10:36)
[2023-05-03] MEDS: LACTOBACILLUS RHAMNOSUS GG 1 EACH CAP.SPRINK PO SCH ×2 (11:38→16:57)
[2023-05-03] MEDS: NYSTATIN 15 GM POWDER TP SCH ×2 (12:30→20:54)
[2023-05-03] MEDS: ATORVASTATIN 20 MG TABLET PO SCH (20:55)
[2023-05-04] VITALS (110 sets, daily range): BP systolic 67–171; BP diastolic 27–106; PULSE 87–118; RESP 6–36; TEMP 98.2–99.6; O2SAT 98–100
[2023-05-04] MEDS: 0.9%NACL 10ML VIAL IV SCH ×3 (00:30→17:12)
[2023-05-04] MEDS: AMIODARONE 900MG VIAL 540 MG in DEXTROSE 5%-WATER 300 ML IV SCH ×2 (04:28→23:05)
[2023-05-04 04:46] LABS: BASOPHILS # (AUTO) 0.02 K/uL (0.00-0.20); BASOPHILS % (AUTO) 0.2 % (0.0-5.0); EOSINOPHILS # (AUTO) 0.06 K/uL (0.00-0.70); EOSINOPHILS % (AUTO) 0.6 % (0.0-8.0); HEMATOCRIT 21.6 % (36-48); LYMPHOCYTES % (AUTO) 10.4 % (21.0-51.0); MEAN CORPUSCULAR HEMOGLOBIN 31.3 pg (27.0-33.0); MEAN CORPUSCULAR HGB CONC 31.5 g/dL (32.0-36.0); MEAN CORPUSCULAR VOLUME 99.5 fL (79-99); MONOCYTES # (AUTO) 0.5 K/uL (0.1-1.0); MONOCYTES % (AUTO) 4.8 % (3.0-13.0); NEUTROPHILS # (AUTO) 8.2 K/uL (1.8-7.7); PLATELET COUNT (AUTO) 93 K/uL (130-400); RED BLOOD CELL COUNT(AUTO) 2.17 MIL/uL (4.00-5.50); RED CELL DISTRIBUTION WIDTH 16.2 % (11.0-15.5); WHITE BLOOD COUNT (AUTO) 9.8 K/uL (4.8-10.8)
[2023-05-04 05:00] LABS: ALBUMIN 1.9 g/dL (3.5-5.0); BILIRUBIN,TOTAL 0.4 mg/dL (0.2-1.0); CREATININE 2.1 mg/dL (0.5-1.5); MAGNESIUM 2.7 mg/dL (1.80-2.40); POTASSIUM 4.9 mmol/L (3.5-5.1); TOTAL PROTEIN, SERUM 5.4 g/dL (6.0-8.3)
[2023-05-04 05:20] LABS: INR 6.42 (0.85-1.15); PARTIAL THROMBOPLASTIN TIME 104.3 SEC (26.3-35.5); PROTHROMBIN TIME 65.9 SEC (9.6-11.6)
[2023-05-04] MEDS: PHENYLEPHRINE HCL 100 MG in 0.9% NACL 250ML 240 ML IV PRN ×2 (06:09→12:18)
[2023-05-04] MEDS ORDERED: PHYTONADIONE 10 MG in 0.9%NACL 50ML 50 ML IVPB ONE (06:30)
[2023-05-04] MEDS: IPRATROPIUM 0.5 MG/2.5 ML INH IH SCH ×3 (06:39→23:55)
[2023-05-04] MEDS: INSULIN HUMULIN R 100 UNIT/ML 3ML SQ SCH ×4 (06:51→19:49)
[2023-05-04] MEDS: TIOTROPIUM BR IH SCH (09:00)
[2023-05-04] MEDS: METOPROLOL TARTRATE 25 MG TAB PO SCH ×2 (09:00→20:01)
[2023-05-04] MEDS: RANOLAZINE 500 MG TAB.SR.12H PO SCH ×2 (09:00→20:05)
[2023-05-04] MEDS: INSULIN GLARGINE 100 UNITS/ML 10 ML VIAL SQ SCH (09:00)
[2023-05-04] MEDS: Vitamin B Complex/Vit C/Folic Acid PO SCH (09:00)
[2023-05-04] MEDS: PANTOPRAZOLE 40 MG TAB DR PO SCH ×2 (09:00→20:02)
[2023-05-04] MEDS: KCL 20 MEQ ERTAB PO SCH (09:00)
[2023-05-04] MEDS: ASPIRIN 81 MG EC TAB PO SCH (09:00)
[2023-05-04] MEDS: CLOPIDOGREL 75MG TAB PO SCH (09:00)
[2023-05-04] MEDS: CETIRIZINE HCL 5 MG TABLET PO SCH (09:00)
[2023-05-04] MEDS: FERROUS SULFATE 325 MG TABLET.DR PO SCH (09:00)
[2023-05-04] MEDS: OLODATEROL HCL IH SCH (09:00)
[2023-05-04] MEDS: AcetaZOLAMIDE 250 MG TAB PO SCH (09:18)
[2023-05-04] MEDS: METRONIDAZOLE 500 MG TABLET PO SCH ×2 (09:18→20:02)
[2023-05-04] MEDS: AMIODARONE 200 MG TABLET PO SCH ×2 (09:18→20:02)
[2023-05-04] MEDS: FUROSEMIDE 40 MG TABLET PO SCH (09:19)
[2023-05-04] MEDS: NYSTATIN 15 GM POWDER TP SCH ×2 (10:17→20:04)
[2023-05-04] MEDS: MUPIROCIN OINTMENT 22 GM TUBE TP SCH (10:49)
[2023-05-04] MEDS: LACTOBACILLUS RHAMNOSUS GG 1 EACH CAP.SPRINK PO SCH ×2 (12:00→17:00)
[2023-05-04 13:24] LABS: ABG BASE EXCESS -8.3 mmol/L (-2.0-3.0); ABG HCO3 19.1 mmol/L (21.0-28.0); ABG PCO2 46 mmHg (32-45); ABG PH 7.234 (7.35-7.450); CPAP, BG 16 cm H2O; PO2, ARTERIAL BG 95.6 mmHg (83.0-108.0)
[2023-05-04 13:53] LABS: HEMATOCRIT 23.1 % (36-48)
[2023-05-04 14:11] LABS: INR 1.9 (0.85-1.15); PROTHROMBIN TIME 21.1 SEC (9.6-11.6)
[2023-05-04 14:12] LABS: PARTIAL THROMBOPLASTIN TIME 63.2 SEC (26.3-35.5)
[2023-05-04] MEDS: ATORVASTATIN 20 MG TABLET PO SCH (20:03)
[2023-05-04 22:26] LABS: HEMATOCRIT 26.6 % (36-48)
[2023-05-04 22:39] LABS: INR 1.25 (0.85-1.15); PROTHROMBIN TIME 14.3 SEC (9.6-11.6)
[2023-05-04 22:40] LABS: PARTIAL THROMBOPLASTIN TIME 54.7 SEC (26.3-35.5)
[2023-05-04] MEDS ORDERED: FUROSEMIDE 40MG VIAL IV ONE (23:30)
[2023-05-05] VITALS (117 sets, daily range): BP systolic 69–171; BP diastolic 32–98; PULSE 77–123; RESP 13–32; TEMP 97.8; O2SAT 96–100
[2023-05-05] MEDS: 0.9%NACL 10ML VIAL IV SCH ×3 (00:23→20:26)
[2023-05-05] MEDS: TRAMADOL HCL 50 MG TABLET PO PRN (02:07)
[2023-05-05] MEDS: PHENYLEPHRINE HCL 100 MG in 0.9% NACL 250ML 240 ML IV PRN ×4 (03:50→23:42)
[2023-05-05 03:53] LABS: INR 1.31 (0.85-1.15); PROTHROMBIN TIME 14.9 SEC (9.6-11.6)
[2023-05-05 03:55] LABS: PARTIAL THROMBOPLASTIN TIME 45.8 SEC (26.3-35.5)
[2023-05-05 04:07] LABS: ALBUMIN 2.1 g/dL (3.5-5.0); BILIRUBIN,TOTAL 0.9 mg/dL (0.2-1.0); CREATININE 2.1 mg/dL (0.5-1.5); MAGNESIUM 2.7 mg/dL (1.80-2.40); TOTAL PROTEIN, SERUM 5.5 g/dL (6.0-8.3)
[2023-05-05 06:21] LABS: BASOPHILS # (AUTO) 0.02 K/uL (0.00-0.20); BASOPHILS % (AUTO) 0.3 % (0.0-5.0); EOSINOPHILS # (AUTO) 0.02 K/uL (0.00-0.70); EOSINOPHILS % (AUTO) 0.3 % (0.0-8.0); IMMATURE GRANULOCYTE ABSOLUTE 0.17 K/uL (0-1); LYMPHOCYTES # (AUTO) 0.8 K/uL (1.0-4.8); LYMPHOCYTES % (AUTO) 10.8 % (21.0-51.0); MEAN CORPUSCULAR HEMOGLOBIN 29.5 pg (27.0-33.0); MEAN CORPUSCULAR HGB CONC 31.5 g/dL (32.0-36.0); MEAN CORPUSCULAR VOLUME 93.8 fL (79-99); MONOCYTES # (AUTO) 0.3 K/uL (0.1-1.0); MONOCYTES % (AUTO) 4.4 % (3.0-13.0); NEUTROPHILS # (AUTO) 6.3 K/uL (1.8-7.7); PLATELET COUNT (AUTO) 59 K/uL (130-400); RED BLOOD CELL COUNT(AUTO) 2.88 MIL/uL (4.00-5.50); WHITE BLOOD COUNT (AUTO) 7.7 K/uL (4.8-10.8)
[2023-05-05] MEDS: IPRATROPIUM 0.5 MG/2.5 ML INH IH SCH ×2 (06:31→14:27)
[2023-05-05] MEDS ORDERED: NOREPINEPHRIN 8MG/250ML NS PMX 250 ML IV ONE (06:36)
[2023-05-05] MEDS: NOREPINEPHRINE 8MG/NS 250ML PREMIX IV SCH ×2 (06:48→23:42)
[2023-05-05] MEDS ORDERED: VASOPRESSIN 20 UNITS in 0.9%NACL 100ML 100 ML IV SCH (07:00)
[2023-05-05 07:26] LABS: ABG BASE EXCESS -10.1 mmol/L (-2.0-3.0); ABG HCO3 17.6 mmol/L (21.0-28.0); ABG OXYGEN SATURATION 94.5 % (95.0-99.0); ABG PCO2 45 mmHg (32-45); ABG PH 7.209 (7.35-7.450); DEVICE COMMENT ALINE; PO2, ARTERIAL BG 86.1 mmHg (83.0-108.0); VENT MODE, BG BIPAP 16-5 (ROOM AIR)
[2023-05-05] MEDS: INSULIN HUMULIN R 100 UNIT/ML 3ML SQ SCH ×4 (07:30→20:27)
[2023-05-05] MEDS: CLOPIDOGREL 75MG TAB PO SCH (09:00)
[2023-05-05] MEDS: ASPIRIN 81 MG EC TAB PO SCH (09:00)
[2023-05-05] MEDS: RANOLAZINE 500 MG TAB.SR.12H PO SCH ×2 (09:00→20:41)
[2023-05-05] MEDS: PANTOPRAZOLE 40 MG TAB DR PO SCH ×2 (09:00→20:41)
[2023-05-05] MEDS: CETIRIZINE HCL 5 MG TABLET PO SCH (09:00)
[2023-05-05] MEDS: Vitamin B Complex/Vit C/Folic Acid PO SCH (09:00)
[2023-05-05] MEDS: FUROSEMIDE 40 MG TABLET PO SCH (09:00)
[2023-05-05] MEDS: METRONIDAZOLE 500 MG TABLET PO SCH ×2 (09:00→20:41)
[2023-05-05] MEDS: AcetaZOLAMIDE 250 MG TAB PO SCH (09:00)
[2023-05-05] MEDS: METOPROLOL TARTRATE 25 MG TAB PO SCH ×2 (09:00→20:41)
[2023-05-05] MEDS: AMIODARONE 200 MG TABLET PO SCH ×2 (09:00→20:41)
[2023-05-05] MEDS: KCL 20 MEQ ERTAB PO SCH (09:00)
[2023-05-05] MEDS: FERROUS SULFATE 325 MG TABLET.DR PO SCH (09:00)
[2023-05-05] MEDS: INSULIN GLARGINE 100 UNITS/ML 10 ML VIAL SQ SCH (09:00)
[2023-05-05] MEDS: SODIUM BICARB 50MEQ 50ML VIAL IV SCH ×2 (09:25→15:46)
[2023-05-05] MEDS: LACTOBACILLUS RHAMNOSUS GG 1 EACH CAP.SPRINK PO SCH ×2 (12:00→20:26)
[2023-05-05 15:14] LABS: ABG BASE EXCESS -7.3 mmol/L (-2.0-3.0); ABG HCO3 19.4 mmol/L (21.0-28.0); ABG OXYGEN SATURATION 95.8 % (95.0-99.0); ABG PCO2 45 mmHg (32-45); ABG PH 7.254 (7.35-7.450); CARBON MONOXIDE 0.5; DEVICE COMMENT ALINE; HHb 4.2; PO2, ARTERIAL BG 92.7 mmHg (83.0-108.0); VENT MODE, BG BIPAP 16 (ROOM AIR)
[2023-05-05] MEDS ORDERED: VANCOMYCIN PROTOCOL PER PHARMACY IV SCH (15:30)
[2023-05-05] MEDS ORDERED: VANCOMYCIN 1.75 GM/250 ML BAG 250 ML IV SCH (16:00)
[2023-05-05] MEDS: OLODATEROL HCL IH SCH (16:26)
[2023-05-05] MEDS: TIOTROPIUM BR IH SCH (16:26)
[2023-05-05] MEDS: MUPIROCIN OINTMENT 22 GM TUBE TP SCH (16:30)
[2023-05-05] MEDS: NYSTATIN 15 GM POWDER TP SCH ×2 (16:30→20:50)
[2023-05-05] MEDS: CEFEPIME HCL 2 GM VIAL IVPB SCH (16:38)
[2023-05-05] MEDS ORDERED: MIDAZOLAM HCL 1 MG/ML 2ML VIAL ONE (17:46)
[2023-05-05] MEDS ORDERED: PROPOFOL 10 MG/ML 20ML VIAL IV ONE (17:48)
[2023-05-05] MEDS ORDERED: KETAMINE 50MG/ML SYRINGE 50 MG/ML DISP.SYRIN ONE (17:49)
[2023-05-05] MEDS ORDERED: ROCURONIUM 10MG/1ML SYR 10 MG/ML ML ONE (17:49)
[2023-05-05 18:10] LABS: ABG BASE EXCESS -8.6 mmol/L (-2.0-3.0); ABG HCO3 17.8 mmol/L (21.0-28.0); ABG OXYGEN SATURATION 98.2 % (95.0-99.0); ABG PCO2 40 mmHg (32-45); ABG PH 7.263 (7.35-7.450); CARBON MONOXIDE 0; HHb 1.8; PO2, ARTERIAL BG 139.2 mmHg (83.0-108.0); VENT MODE, BG BIPAP 16-5 (ROOM AIR)
[2023-05-05] MEDS ORDERED: SODIUM BICARB 50MEQ 50ML VIAL 100 ML ONE (18:19)
[2023-05-05 19:23] LABS: ABG BASE EXCESS -4.7 mmol/L (-2.0-3.0); ABG OXYGEN SATURATION 97.9 % (95.0-99.0); ABG PCO2 49 mmHg (32-45); CARBON MONOXIDE 0.4; HHb 2.1; PO2, ARTERIAL BG 136.8 mmHg (83.0-108.0)
[2023-05-05] MEDS: AMIODARONE 900MG VIAL 540 MG in DEXTROSE 5%-WATER 300 ML IV SCH (20:26)
[2023-05-05] MEDS: ATORVASTATIN 20 MG TABLET PO SCH (23:45)
[2023-05-06] VITALS (90 sets, daily range): BP systolic 79–138; BP diastolic 33–87; PULSE 71–108; RESP 14–34; TEMP 97–98; O2SAT 95–100
[2023-05-06 00:10] LABS: ABG BASE EXCESS -5.8 mmol/L (-2.0-3.0); ABG HCO3 21.3 mmol/L (21.0-28.0); ABG PCO2 50 mmHg (32-45); CARBON MONOXIDE 0.4; PO2, ARTERIAL BG 135.8 mmHg (83.0-108.0); VENT MODE, BG BIPAP 16-5 (ROOM AIR)
[2023-05-06 04:38] LABS: ABG BASE EXCESS -4.5 mmol/L (-2.0-3.0); ABG HCO3 22.7 mmol/L (21.0-28.0); ABG PCO2 52 mmHg (32-45); ABG PH 7.258 (7.35-7.450); CARBON MONOXIDE 0.1; PO2, ARTERIAL BG 138.8 mmHg (83.0-108.0)
[2023-05-06 04:49] LABS: BASOPHILS # (AUTO) 0.01 K/uL (0.00-0.20); BASOPHILS % (AUTO) 0.2 % (0.0-5.0); EOSINOPHILS # (AUTO) 0.01 K/uL (0.00-0.70); EOSINOPHILS % (AUTO) 0.2 % (0.0-8.0); IMMATURE GRANULOCYTE ABSOLUTE 0.07 K/uL (0-1); LYMPHOCYTES # (AUTO) 0.6 K/uL (1.0-4.8); LYMPHOCYTES % (AUTO) 8.9 % (21.0-51.0); MEAN CORPUSCULAR HEMOGLOBIN 28.7 pg (27.0-33.0); MEAN CORPUSCULAR HGB CONC 31.8 g/dL (32.0-36.0); MEAN CORPUSCULAR VOLUME 90.3 fL (79-99); MONOCYTES # (AUTO) 0.2 K/uL (0.1-1.0); MONOCYTES % (AUTO) 3.6 % (3.0-13.0); NEUTROPHILS # (AUTO) 5.5 K/uL (1.8-7.7); PLATELET COUNT (AUTO) 65 K/uL (130-400); RED CELL DISTRIBUTION WIDTH 18.8 % (11.0-15.5); WHITE BLOOD COUNT (AUTO) 6.4 K/uL (4.8-10.8)
[2023-05-06 04:59] LABS: CREATININE 1.9 mg/dL (0.5-1.5); POTASSIUM 4.9 mmol/L (3.5-5.1)
[2023-05-06] MEDS ORDERED: PHENYLEPHRINE HCL 10 MG/ML 5ML VIAL IV ONE (05:00)
[2023-05-06] MEDS: PHENYLEPHRINE HCL 100 MG in 0.9% NACL 250ML 240 ML IV PRN ×2 (05:32→13:39)
[2023-05-06] MEDS: 0.9%NACL 10ML VIAL IV SCH ×3 (05:33→16:30)
[2023-05-06] MEDS: INSULIN HUMULIN R 100 UNIT/ML 3ML SQ SCH ×4 (06:38→20:47)
[2023-05-06] MEDS: IPRATROPIUM 0.5 MG/2.5 ML INH IH SCH ×3 (06:59→22:13)
[2023-05-06 07:09] LABS: ABG BASE EXCESS -5.3 mmol/L (-2.0-3.0); ABG HCO3 22.4 mmol/L (21.0-28.0); ABG OXYGEN SATURATION 96.6 % (95.0-99.0); ABG PCO2 53 mmHg (32-45); ABG PH 7.247 (7.35-7.450); CARBON MONOXIDE 1.3; DEVICE COMMENT RN MILTON; HHb 3.4; PO2, ARTERIAL BG 96.9 mmHg (83.0-108.0); VENT MODE, BG BIPAP 18 (ROOM AIR)
[2023-05-06] MEDS: AcetaZOLAMIDE 250 MG TAB PO SCH (08:21)
[2023-05-06] MEDS: METRONIDAZOLE 500 MG TABLET PO SCH (08:21)
[2023-05-06] MEDS: CLOPIDOGREL 75MG TAB PO SCH (08:21)
[2023-05-06] MEDS: AMIODARONE 200 MG TABLET PO SCH ×2 (08:22→20:46)
[2023-05-06] MEDS: CETIRIZINE HCL 5 MG TABLET PO SCH (08:22)
[2023-05-06] MEDS: RANOLAZINE 500 MG TAB.SR.12H PO SCH ×2 (08:22→20:46)
[2023-05-06] MEDS: ASPIRIN 81 MG EC TAB PO SCH (08:22)
[2023-05-06] MEDS: PANTOPRAZOLE 40 MG TAB DR PO SCH ×2 (08:23→20:46)
[2023-05-06] MEDS: FUROSEMIDE 40 MG TABLET PO SCH (08:23)
[2023-05-06] MEDS: FERROUS SULFATE 325 MG TABLET.DR PO SCH (08:23)
[2023-05-06] MEDS: Vitamin B Complex/Vit C/Folic Acid PO SCH (08:23)
[2023-05-06] MEDS: NYSTATIN 15 GM POWDER TP SCH ×2 (08:24→20:48)
[2023-05-06] MEDS: MUPIROCIN OINTMENT 22 GM TUBE TP SCH (08:25)
[2023-05-06] MEDS: TIOTROPIUM BR IH SCH (08:28)
[2023-05-06] MEDS: OLODATEROL HCL IH SCH (08:28)
[2023-05-06] MEDS: SODIUM BICARB 50MEQ 50ML VIAL IV SCH ×2 (08:30→14:44)
[2023-05-06] MEDS: KCL 20 MEQ ERTAB PO SCH (08:31)
[2023-05-06] MEDS: METOPROLOL TARTRATE 25 MG TAB PO SCH ×2 (08:31→20:47)
[2023-05-06] MEDS: INSULIN GLARGINE 100 UNITS/ML 10 ML VIAL SQ SCH (08:32)
[2023-05-06] MEDS: LACTOBACILLUS RHAMNOSUS GG 1 EACH CAP.SPRINK PO SCH ×2 (11:48→16:40)
[2023-05-06] MEDS: AMIODARONE 900MG VIAL 540 MG in DEXTROSE 5%-WATER 300 ML IV SCH (12:19)
[2023-05-06] MEDS ORDERED: FUROSEMIDE 40MG VIAL IV ONE (12:30)
[2023-05-06] MEDS: ACETAMINOPHEN 325 MG TAB PO PRN (14:34)
[2023-05-06] MEDS: CEFEPIME HCL 2 GM VIAL IVPB SCH (14:43)
[2023-05-06] MEDS ORDERED: HYDROCODONE/ACETAMINOPHEN 10/325 MG TAB ONE (20:35)
[2023-05-06] MEDS: HYDROCODONE/ACETAMINOPHEN 10/325 MG TAB PO PRN (20:47)
[2023-05-06] MEDS: ATORVASTATIN 20 MG TABLET PO SCH (20:50)
[2023-05-07] VITALS (102 sets, daily range): BP systolic 95–152; BP diastolic 41–70; PULSE 73–88; RESP 8–68; O2SAT 95–100
[2023-05-07] MEDS: PHENYLEPHRINE HCL 100 MG in 0.9% NACL 250ML 240 ML IV PRN (00:02)
[2023-05-07 04:46] LABS: BASOPHILS # (AUTO) 0.01 K/uL (0.00-0.20); BASOPHILS % (AUTO) 0.2 % (0.0-5.0); EOSINOPHILS # (AUTO) 0.01 K/uL (0.00-0.70); EOSINOPHILS % (AUTO) 0.2 % (0.0-8.0); IMMATURE GRANULOCYTE ABSOLUTE 0.04 K/uL (0-1); LYMPHOCYTES # (AUTO) 0.4 K/uL (1.0-4.8); LYMPHOCYTES % (AUTO) 9.2 % (21.0-51.0); MEAN CORPUSCULAR HEMOGLOBIN 28.7 pg (27.0-33.0); MEAN CORPUSCULAR HGB CONC 31.5 g/dL (32.0-36.0); MEAN CORPUSCULAR VOLUME 91.2 fL (79-99); MONOCYTES # (AUTO) 0.1 K/uL (0.1-1.0); MONOCYTES % (AUTO) 2.5 % (3.0-13.0); NEUTROPHILS # (AUTO) 4.2 K/uL (1.8-7.7); NEUTROPHILS % (AUTO) 87.1 % (40.0-77.0); PLATELET COUNT (AUTO) 65 K/uL (130-400); RED BLOOD CELL COUNT(AUTO) 2.96 MIL/uL (4.00-5.50); RED CELL DISTRIBUTION WIDTH 19.1 % (11.0-15.5); WHITE BLOOD COUNT (AUTO) 4.8 K/uL (4.8-10.8)
[2023-05-07 05:01] LABS: CREATININE 1.6 mg/dL (0.5-1.5); POTASSIUM 4.5 mmol/L (3.5-5.1); TOTAL PROTEIN, SERUM 5.5 g/dL (6.0-8.3)
[2023-05-07] MEDS: IPRATROPIUM 0.5 MG/2.5 ML INH IH SCH ×3 (06:28→21:48)
[2023-05-07] MEDS: INSULIN HUMULIN R 100 UNIT/ML 3ML SQ SCH ×4 (06:46→21:44)
[2023-05-07] MEDS: AMIODARONE 900MG VIAL 540 MG in DEXTROSE 5%-WATER 300 ML IV SCH (06:56)
[2023-05-07 07:32] LABS: ABG OXYGEN SATURATION 95.2 % (95.0-99.0); ABG PCO2 48 mmHg (32-45); ABG PH 7.369 (7.35-7.450); PO2, ARTERIAL BG 78.9 mmHg (83.0-108.0)
[2023-05-07] MEDS: 0.9%NACL 10ML VIAL IV SCH (07:43)
[2023-05-07] MEDS: HYDROCODONE/ACETAMINOPHEN 10/325 MG TAB PO PRN ×3 (07:44→23:35)
[2023-05-07] MEDS: FERROUS SULFATE 325 MG TABLET.DR PO SCH (07:44)
[2023-05-07] MEDS: KCL 20 MEQ ERTAB PO SCH (07:44)
[2023-05-07] MEDS: Vitamin B Complex/Vit C/Folic Acid PO SCH (07:44)
[2023-05-07] MEDS: AMIODARONE 200 MG TABLET PO SCH ×2 (07:44→20:28)
[2023-05-07] MEDS: PANTOPRAZOLE 40 MG TAB DR PO SCH (07:44)
[2023-05-07] MEDS: CETIRIZINE HCL 5 MG TABLET PO SCH (07:45)
[2023-05-07] MEDS: AcetaZOLAMIDE 250 MG TAB PO SCH (07:45)
[2023-05-07] MEDS: FUROSEMIDE 40 MG TABLET PO SCH (07:45)
[2023-05-07] MEDS: ASPIRIN 81 MG EC TAB PO SCH (07:45)
[2023-05-07] MEDS: OLODATEROL HCL IH SCH (07:46)
[2023-05-07] MEDS: TIOTROPIUM BR IH SCH (07:46)
[2023-05-07] MEDS: INSULIN GLARGINE 100 UNITS/ML 10 ML VIAL SQ SCH (07:47)
[2023-05-07] MEDS: METOPROLOL TARTRATE 25 MG TAB PO SCH ×2 (07:47→21:00)
[2023-05-07] MEDS: RANOLAZINE 500 MG TAB.SR.12H PO SCH ×2 (07:51→20:28)
[2023-05-07] MEDS: NYSTATIN 15 GM POWDER TP SCH ×2 (11:05→20:29)
[2023-05-07] MEDS: MUPIROCIN OINTMENT 22 GM TUBE TP SCH (11:06)
[2023-05-07] MEDS: LACTOBACILLUS RHAMNOSUS GG 1 EACH CAP.SPRINK PO SCH ×2 (12:08→17:00)
[2023-05-07] MEDS ORDERED: FUROSEMIDE 40MG VIAL IV ONE (12:30)
[2023-05-07] MEDS: CEFEPIME HCL 2 GM VIAL IVPB SCH (15:29)
[2023-05-07] MEDS: VANCOMYCIN 1.5 GM/250 ML BAG 250 ML IV SCH (17:02)
[2023-05-07] MEDS: ACETAMINOPHEN 325 MG TAB PO PRN (17:26)
[2023-05-07] MEDS: PANTOPRAZOLE 40 MG/VIAL IVP SCH (20:28)
[2023-05-07] MEDS: ATORVASTATIN 20 MG TABLET PO SCH (20:28)
[2023-05-08] VITALS (71 sets, daily range): BP systolic 85–155; BP diastolic 36–75; PULSE 78–125; RESP 11–27; TEMP 97.4–98; O2SAT 92–100
[2023-05-08] MEDS: AMIODARONE 900MG VIAL 540 MG in DEXTROSE 5%-WATER 300 ML IV SCH (01:33)
[2023-05-08] MEDS: HYDROCODONE/ACETAMINOPHEN 10/325 MG TAB PO PRN ×3 (04:08→21:00)
[2023-05-08] MEDS: VANCOMYCIN 1.5 GM/250 ML BAG 250 ML IV SCH ×2 (04:08→15:03)
[2023-05-08 04:15] LABS: HEMATOCRIT 24.5 % (36-48); MEAN CORPUSCULAR HEMOGLOBIN 28.7 pg (27.0-33.0); MEAN CORPUSCULAR HGB CONC 31.8 g/dL (32.0-36.0); MEAN CORPUSCULAR VOLUME 90.1 fL (79-99); RED BLOOD CELL COUNT(AUTO) 2.72 MIL/uL (4.00-5.50); RED CELL DISTRIBUTION WIDTH 18.6 % (11.0-15.5); WHITE BLOOD COUNT (AUTO) 3.5 K/uL (4.8-10.8)
[2023-05-08 04:23] LABS: CREATININE 1.4 mg/dL (0.5-1.5); MAGNESIUM 2.5 mg/dL (1.80-2.40); POTASSIUM 3.6 mmol/L (3.5-5.1)
[2023-05-08] MEDS: INSULIN HUMULIN R 100 UNIT/ML 3ML SQ SCH ×4 (06:03→20:57)
[2023-05-08] MEDS: IPRATROPIUM 0.5 MG/2.5 ML INH IH SCH ×3 (06:30→22:58)
[2023-05-08] MEDS: AMIODARONE 200 MG TABLET PO SCH (07:22)
[2023-05-08] MEDS: METOPROLOL TARTRATE 25 MG TAB PO SCH ×2 (07:22→20:48)
[2023-05-08] MEDS: ASPIRIN 81 MG EC TAB PO SCH (07:36)
[2023-05-08] MEDS: KCL 20 MEQ ERTAB PO SCH (07:58)
[2023-05-08] MEDS: FERROUS SULFATE 325 MG TABLET.DR PO SCH (08:28)
[2023-05-08] MEDS: PANTOPRAZOLE 40 MG/VIAL IVP SCH ×2 (08:28→20:48)
[2023-05-08] MEDS: FUROSEMIDE 40 MG TABLET PO SCH (08:29)
[2023-05-08] MEDS: AcetaZOLAMIDE 250 MG TAB PO SCH (08:29)
[2023-05-08] MEDS: Vitamin B Complex/Vit C/Folic Acid PO SCH (08:29)
[2023-05-08] MEDS: CETIRIZINE HCL 5 MG TABLET PO SCH (08:29)
[2023-05-08] MEDS: OLODATEROL HCL IH SCH (08:30)
[2023-05-08] MEDS: TIOTROPIUM BR IH SCH (08:30)
[2023-05-08] MEDS: RANOLAZINE 500 MG TAB.SR.12H PO SCH ×2 (08:32→21:00)
[2023-05-08] MEDS: INSULIN GLARGINE 100 UNITS/ML 10 ML VIAL SQ SCH (08:32)
[2023-05-08] MEDS: NYSTATIN 15 GM POWDER TP SCH ×2 (08:33→20:49)
[2023-05-08] MEDS: HYDROMORPHONE 0.5 MG SYG (0.5MG/0.5ML) IVP PRN ×3 (09:04→17:38)
[2023-05-08] MEDS: MUPIROCIN OINTMENT 22 GM TUBE TP SCH (10:11)
[2023-05-08] MEDS: LACTOBACILLUS RHAMNOSUS GG 1 EACH CAP.SPRINK PO SCH ×2 (11:51→17:07)
[2023-05-08] MEDS: CEFEPIME HCL 2 GM VIAL IVPB SCH (14:29)
[2023-05-08] MEDS ORDERED: GABAPENTIN 100 MG CAPSULE PO SCH (21:00)
[2023-05-08] MEDS: ATORVASTATIN 20 MG TABLET PO SCH (22:00)
[2023-05-09] VITALS (20 sets, daily range): BP systolic 88–138; BP diastolic 35–111; PULSE 44–133; RESP 15–29; TEMP 97.5–98.1; O2SAT 88–96
[2023-05-09 04:51] LABS: ABG HCO3 28.7 mmol/L (21.0-28.0); ABG OXYGEN SATURATION 94.9 % (95.0-99.0); ABG PCO2 53 mmHg (32-45); ABG PH 7.355 (7.35-7.450); CPAP, BG 18 cm H2O; PO2, ARTERIAL BG 78.4 mmHg (83.0-108.0); VENT MODE, BG ALINE BIPAP (ROOM AIR)
[2023-05-09 05:32] LABS: EOSINOPHILS # (AUTO) 0.03 K/uL (0.00-0.70); EOSINOPHILS % (AUTO) 0.6 % (0.0-8.0); HEMATOCRIT 24.8 % (36-48); IMMATURE GRANULOCYTE ABSOLUTE 0.03 K/uL (0-1); LYMPHOCYTES # (AUTO) 0.6 K/uL (1.0-4.8); LYMPHOCYTES % (AUTO) 11.2 % (21.0-51.0); MEAN CORPUSCULAR HEMOGLOBIN 28.5 pg (27.0-33.0); MEAN CORPUSCULAR VOLUME 91.9 fL (79-99); MONOCYTES # (AUTO) 0.3 K/uL (0.1-1.0); MONOCYTES % (AUTO) 5.3 % (3.0-13.0); NEUTROPHILS # (AUTO) 4.3 K/uL (1.8-7.7); NEUTROPHILS % (AUTO) 82.3 % (40.0-77.0); PLATELET COUNT (AUTO) 22 K/uL (130-400); RED CELL DISTRIBUTION WIDTH 18.5 % (11.0-15.5); WHITE BLOOD COUNT (AUTO) 5.3 K/uL (4.8-10.8)
[2023-05-09 06:13] LABS: ALBUMIN 2.1 g/dL (3.5-5.0); BILIRUBIN,DIRECT 2.5 mg/dL (0.0-0.3); BILIRUBIN,TOTAL 3.4 mg/dL (0.2-1.0); CREATININE 1.3 mg/dL (0.5-1.5); POTASSIUM 3.6 mmol/L (3.5-5.1); THYROID STIMULATING HORMONE 1.82 uIU/mL (0.36-3.74); TOTAL PROTEIN, SERUM 5.4 g/dL (6.0-8.3)
[2023-05-09] MEDS: IPRATROPIUM 0.5 MG/2.5 ML INH IH SCH (06:26)
[2023-05-09] MEDS: INSULIN HUMULIN R 100 UNIT/ML 3ML SQ SCH (06:33)
[2023-05-09] MEDS ORDERED: SODIUM BICARB 50MEQ 50ML VIAL 150 ML ONE (07:17)
[2023-05-09] MEDS ORDERED: SODIUM BICARB 8.4% 50ML SYRINGE IVP SCH (07:30)
[2023-05-09 07:42] LABS: ABG BASE EXCESS 6.3 mmol/L (-2.0-3.0); ABG HCO3 33.7 mmol/L (21.0-28.0); ABG OXYGEN SATURATION 98.4 % (95.0-99.0); ABG PCO2 69 mmHg (32-45); ABG PH 7.309 (7.35-7.450); CARBON MONOXIDE 1.2; HHb 1.6; PO2, ARTERIAL BG 181.4 mmHg (83.0-108.0); VENT MODE, BG BIPAP 18-5 r24 (ROOM AIR)
[2023-05-09] MEDS: NOREPINEPHRINE 8MG/NS 250ML PREMIX IV SCH (07:51)
[2023-05-09] MEDS ORDERED: DEXTROSE 5%-WATER 1,000 ML IV SCH (08:00)
[2023-05-09 08:16] LABS: INR 1.2 (0.85-1.15); PROTHROMBIN TIME 13.8 SEC (9.6-11.6)
[2023-05-09 08:17] LABS: PARTIAL THROMBOPLASTIN TIME 44.4 SEC (26.3-35.5)
[2023-05-09] MEDS ORDERED: MORPHINE 2 MG SYG IVP SCH (09:00)
[2023-05-09] MEDS ORDERED: GLYCOPYRROLATE 1 MG/5 ML SYRINGE IV PRN (09:00)
[2023-05-09] MEDS ORDERED: ONDANSETRON 4MG INJ IVP PRN (09:00)
[2023-05-09] MEDS ORDERED: LORAZEPAM 2 MG/ML 1 ML VIAL IVP PRN (09:00)
[2023-05-09] MEDS ORDERED: BISACODYL 10 MG SUPP.RECT RC PRN (09:00)
[2023-05-09] MEDS ORDERED: ACETAMINOPHEN 650 MG SUPPOSITORY RC PRN (09:00)
[2023-05-09] MEDS: MORPHINE 2 MG SYG IVP PRN ×2 (09:22→09:59)
[2023-05-09] MEDS: LORAZEPAM 2 MG/ML 1 ML VIAL IVP PRN ×2 (12:36→13:48)
== END 2023-05-09 12:44 | disposition hospice, inpatient (51) | DRG 270 ==
LOC: EDH 02:14 → EDHIP 21:27 → EDH 04-16 02:14 → UNDOADMIN 04-16 02:57 → EDHIP 04-16 02:57 → EDH 04-16 09:49 → 3AH 04-16 10:10 → EDHIP 04-16 10:10 → 2AH 04-20 01:08 → 2CH 04-24 02:04 → 2DH 04-24 13:00 → 2BH 04-30 20:48
PROVIDERS: ADMIT Internal Medicine; ATTEND Internal Medicine
PROC: 5A09357 Assistance with Respiratory Ventilation, Less than 24 Consecutive Hours, Continuous Positive Airway Pressure (ICD-10-PCS; 2023-04-19)
PROC: 5A09357 Assistance with Respiratory Ventilation, Less than 24 Consecutive Hours, Continuous Positive Airway Pressure (ICD-10-PCS; 2023-04-20)
PROC: 5A09357 Assistance with Respiratory Ventilation, Less than 24 Consecutive Hours, Continuous Positive Airway Pressure (ICD-10-PCS; 2023-04-21)
PROC: 5A09357 Assistance with Respiratory Ventilation, Less than 24 Consecutive Hours, Continuous Positive Airway Pressure (ICD-10-PCS; 2023-04-22)
PROC: 5A09357 Assistance with Respiratory Ventilation, Less than 24 Consecutive Hours, Continuous Positive Airway Pressure (ICD-10-PCS; 2023-04-23)
PROC: 5A09357 Assistance with Respiratory Ventilation, Less than 24 Consecutive Hours, Continuous Positive Airway Pressure (ICD-10-PCS; 2023-04-24)
PROC: 5A09357 Assistance with Respiratory Ventilation, Less than 24 Consecutive Hours, Continuous Positive Airway Pressure (ICD-10-PCS; 2023-04-25)
PROC: 5A09357 Assistance with Respiratory Ventilation, Less than 24 Consecutive Hours, Continuous Positive Airway Pressure (ICD-10-PCS; 2023-04-26)
PROC: 02HV33Z Insertion of Infusion Device into Superior Vena Cava, Percutaneous Approach (ICD-10-PCS; 2023-04-26)
PROC: 4A023N7 Measurement of Cardiac Sampling and Pressure, Left Heart, Percutaneous Approach (ICD-10-PCS; 2023-04-27)
PROC: B2181ZZ Fluoroscopy of Left Internal Mammary Bypass Graft using Low Osmolar Contrast (ICD-10-PCS; 2023-04-27)
PROC: B2111ZZ Fluoroscopy of Multiple Coronary Arteries using Low Osmolar Contrast (ICD-10-PCS; 2023-04-27)
PROC: B41F1ZZ Fluoroscopy of Right Lower Extremity Arteries using Low Osmolar Contrast (ICD-10-PCS; 2023-04-27)
PROC: 5A09357 Assistance with Respiratory Ventilation, Less than 24 Consecutive Hours, Continuous Positive Airway Pressure (ICD-10-PCS; 2023-04-27)
PROC: B4101ZZ Fluoroscopy of Abdominal Aorta using Low Osmolar Contrast (ICD-10-PCS; 2023-04-27)
PROC: 5A09357 Assistance with Respiratory Ventilation, Less than 24 Consecutive Hours, Continuous Positive Airway Pressure (ICD-10-PCS; 2023-04-28)
PROC: 5A09357 Assistance with Respiratory Ventilation, Less than 24 Consecutive Hours, Continuous Positive Airway Pressure (ICD-10-PCS; 2023-04-29)
PROC: 041 Lower Arteries, Bypass (ICD-10-PCS; 2023-04-30)
PROC: 5A09357 Assistance with Respiratory Ventilation, Less than 24 Consecutive Hours, Continuous Positive Airway Pressure (ICD-10-PCS; 2023-04-30)
PROC: 5A09357 Assistance with Respiratory Ventilation, Less than 24 Consecutive Hours, Continuous Positive Airway Pressure (ICD-10-PCS; 2023-05-01)
PROC: 5A09357 Assistance with Respiratory Ventilation, Less than 24 Consecutive Hours, Continuous Positive Airway Pressure (ICD-10-PCS; 2023-05-02)
PROC: 5A09357 Assistance with Respiratory Ventilation, Less than 24 Consecutive Hours, Continuous Positive Airway Pressure (ICD-10-PCS; 2023-05-03)
PROC: 30233K1 Transfusion of Nonautologous Frozen Plasma into Peripheral Vein, Percutaneous Approach (ICD-10-PCS; 2023-05-04)
PROC: 30233N1 Transfusion of Nonautologous Red Blood Cells into Peripheral Vein, Percutaneous Approach (ICD-10-PCS; 2023-05-04)
PROC: 5A09357 Assistance with Respiratory Ventilation, Less than 24 Consecutive Hours, Continuous Positive Airway Pressure (ICD-10-PCS; 2023-05-04)
PROC: 30233R1 Transfusion of Nonautologous Platelets into Peripheral Vein, Percutaneous Approach (ICD-10-PCS; 2023-05-05)
PROC: 5A09357 Assistance with Respiratory Ventilation, Less than 24 Consecutive Hours, Continuous Positive Airway Pressure (ICD-10-PCS; 2023-05-05)
PROC: 0Y6C0Z3 Detachment at Right Upper Leg, Low, Open Approach (ICD-10-PCS; principal; 2023-05-05 18:00)
DX: E11.52 Type 2 diabetes mellitus with diabetic peripheral angiopathy with gangrene (principal); A41.9 Sepsis, unspecified organism; I50.43 Acute on chronic combined systolic (congestive) and diastolic (congestive) heart failure; J96.22 Acute and chronic respiratory failure with hypercapnia; R57.0 Cardiogenic shock; R65.21 Severe sepsis with septic shock; J96.21 Acute and chronic respiratory failure with hypoxia; M87.9 Osteonecrosis, unspecified; L03.115 Cellulitis of right lower limb; I13.0 Hypertensive heart and chronic kidney disease with heart failure and stage 1 through stage 4 chronic kidney disease, or unspecified chronic kidney disease; J44.1 Chronic obstructive pulmonary disease with (acute) exacerbation; L97.319 Non-pressure chronic ulcer of right ankle with unspecified severity; N17.9 Acute kidney failure, unspecified; J96.10 Chronic respiratory failure, unspecified whether with hypoxia or hypercapnia; D68.59 Other primary thrombophilia; E87.0 Hyperosmolality and hypernatremia; E87.1 Hypo-osmolality and hyponatremia; D61.818 Other pancytopenia; J45.901 Unspecified asthma with (acute) exacerbation; N18.4 Chronic kidney disease, stage 4 (severe); E46 Unspecified protein-calorie malnutrition; E87.4 Mixed disorder of acid-base balance; I70.261 Atherosclerosis of native arteries of extremities with gangrene, right leg; M86.8X7 Other osteomyelitis, ankle and foot; Z68.41 Body mass index [BMI] 40.0-44.9, adult; Z20.822 Contact with and (suspected) exposure to COVID-19; I70.221 Atherosclerosis of native arteries of extremities with rest pain, right leg; E11.51 Type 2 diabetes mellitus with diabetic peripheral angiopathy without gangrene; E11.40 Type 2 diabetes mellitus with diabetic neuropathy, unspecified; E11.69 Type 2 diabetes mellitus with other specified complication; E11.319 Type 2 diabetes mellitus with unspecified diabetic retinopathy without macular edema; E66.01 Morbid (severe) obesity due to excess calories; I25.118 Atherosclerotic heart disease of native coronary artery with other forms of angina pectoris; I25.5 Ischemic cardiomyopathy; T50.8X5A Adverse effect of diagnostic agents, initial encounter; L97.522 Non-pressure chronic ulcer of other part of left foot with fat layer exposed; N14.11 Contrast-induced nephropathy; Z66 Do not resuscitate; Z51.5 Encounter for palliative care; E11.36 Type 2 diabetes mellitus with diabetic cataract; E11.65 Type 2 diabetes mellitus with hyperglycemia; E11.22 Type 2 diabetes mellitus with diabetic chronic kidney disease; E78.2 Mixed hyperlipidemia; E87.6 Hypokalemia; G25.81 Restless legs syndrome; I25.2 Old myocardial infarction; I48.0 Paroxysmal atrial fibrillation; G47.33 Obstructive sleep apnea (adult) (pediatric); I34.0 Nonrheumatic mitral (valve) insufficiency; L97.519 Non-pressure chronic ulcer of other part of right foot with unspecified severity; H35.81 Retinal edema; Y92.238 Other place in hospital as the place of occurrence of the external cause; M81.0 Age-related osteoporosis without current pathological fracture; Z79.02 Long term (current) use of antithrombotics/antiplatelets; Z79.4 Long term (current) use of insulin; Z79.82 Long term (current) use of aspirin; Z79.899 Other long term (current) drug therapy; Z83.3 Family history of diabetes mellitus; Z89.511 Acquired absence of right leg below knee; Z90.711 Acquired absence of uterus with remaining cervical stump; Z95.1 Presence of aortocoronary bypass graft; Z95.5 Presence of coronary angioplasty implant and graft; Z99.81 Dependence on supplemental oxygen
CPT/HCPCS: 36246; 36247; 36415; 36600; 71045; 71046; 73630; 73718; 75635; 75716; 76770; 80048; 80053; 80076; 80202; 81001; 82140; 82435; 82550; 82607; 82728; 82746; 82803; 82947; 82948; 83540; 83550; 83605; 83615; 83735; 83880; 84100; 84132; 84295; 84443; 84484; 84550; 85007; 85014; 85018; 85025; 85027; 85347; 85378; 85384; 85610; 85651; 85730; 86022; 86334; 86850; 86900; 86901; 86923; 86927; 87040; 87088; 87340; 87426; 87522; 87635; 87804; 88304; 88311; 93005; 93306; 93455; 93923; 93925; 93926; 93970; 94640; 94660; 97039; 99156; 99157; A4344; A6250; C1768; C1769; C1894; C9113; G0378; J0282; J0330; J0690; J0692; J1170; J1644; J1650; J1815; J1940; J2001; J2020; J2060; J2250; J2270; J2370; J2371; J2405; J2543; J2704; J3010; J3430; J3475; J3480; J3490; J7030; J7040; J7050; J7060; J7608; P9016; P9017; P9034; P9045; P9046; Q0163; Q9967; A4600; A4649; A6219; A6223; A6450; C1713; G0168; J3370